=== PATIENT | female | born 1990 | race Caucasian/White ===

== ENCOUNTER 2019-05-25 00:21 | Emergency (ER) | payer MEDICAID, SELFPAY | END 2019-05-25 03:24 | disposition home or self-care (01) | PROVIDERS: Emergency Provider Physician Assistant; Family Provider Nurse Practitioner; Visit Provider Physician Assistant | DX: G89.29 Other chronic pain (principal); M54.5 Low back pain; F17.210 Nicotine dependence, cigarettes, uncomplicated | CPT/HCPCS: 96372; 99284; J1885 ==

== ENCOUNTER 2019-06-08 15:36 | Emergency (ER) | payer BC, MEDICAID, SELFPAY ==
[2019-06-08 15:41] VITALS: BP 123/68; PULSE 82; RESP 18; TEMP 36.6; O2SAT 100; BMI 30.4
--- NOTE | 2019-06-08 17:12 | PC.NURSE ---
Patient reports that she has had lower back pain for a long time but has got worse in the last 2 weeks. Patient states that pain is worse with movement. Patient reports that she was seen at urgent care today and they sent her here for an issue with her spine.
--- NOTE | 2019-06-08 17:23 | W.ED.BACK ---
HPI - Back Pain/Injury General: Chief Complaint: Back Pain/Injury Stated Complaint: Back pain Time Seen by Provider: 06/08/19 17:10 History of Present Illness: HPI Narrative: Patient complains of ongoing low back pain. Has a history of that for years. Has flared up the last couple weeks. Was sent here by the urgent care. MD elicited complaint: back pain Pertinent past history: prior back pain Onset (ago): year(s) Timing: intermittent and progressively worsening Associated symptoms: Deny abdominal pain, chills, fever(s), nausea or vomiting Review of Systems Const: Denies: fever, chills or body aches Eyes: Denies: change in vision or blurry vision ENMT: Denies: throat pain or nasal congestion Card: Denies: chest pain or shortness of breath on exertion Resp: Denies: shortness of breath, productive cough or non-productive cough GI: Denies: abdominal pain, nausea or vomiting Musc: Reports: back pain; Denies: extremity pain Skin/Breast: Denies: rash Neuro: Denies: headache Psych: Denies: anxiety or depression Bruce/Lymph: Denies: easy bruising PFSH ED PFSH: Statuses (acute, chronic, etc) shown below reflect problem list status as previously entered and may not be historically accurate Social History (Updated 06/08/19 @ 14:04 by Kassandra Coker LPN) Smoking and tobacco status: current every day smoker cigarettes Alcohol intake: current Alcohol intake frequency: holidays/special occasions only Physical Exam Const: COMMON NORMALS: no apparent distress, average body habitus and oriented x3 HENMT: COMMON NORMALS: normocephalic HEAD & SCALP: normal to inspection and normocephalic FACE & SINUS: normal facial exam Eye: COMMON NORMALS: conjunctivae normal GENERAL EYE: normal appearance of both eyes CONJUNCTIVA: Yes conjunctivae normal Neck/C-Spine: COMMON NORMALS: no JVD Chest: COMMONS NORMALS: inspection of chest normal Resp: COMMON NORMALS: normal respiratory effort and clear to auscultation bilaterally AUSCULTATION: clear to auscultation bilaterally Cardio: COMMON NORMALS: no JVD, regular rate and regular rhythm RATE: regular rate RHYTHM: regular rhythm GI: COMMON NORMALS: normal to inspection, nondistended, normoactive bowel sounds Extremity: COMMON NORMALS: normal to inspection and full ROM Neuro: COMMON NORMALS: oriented x3 GAIT: Yes normal gait MOTOR EXAM: strength 5/5 throughout OTHER: Straight leg lift positive at 15 degrees bilaterally for pain Course Vital Signs: Vital signs: Vital Signs Temperature 97.8 F 06/08/19 15:41 Pulse Rate 82 06/08/19 17:56 Respiratory Rate 15 06/08/19 17:56 Blood Pressure 113/62 06/08/19 17:56 Pulse Oximetry 98 06/08/19 17:56 Discharge Plan Discharge Patient Disposition: Home, Self-Care Clinical Impression: Lumbar radiculopathy Condition: Stable Prescriptions: New prednisone 20 mg tablet 20 mg PO DAILY Qty: 10 RF: 0 tramadol 50 mg tablet 50 mg PO Q8H PRN (Reason: pain) Qty: 10 RF: 0 Referrals: , [Primary Care Provider] - Eliot Banda FNP-C [Family Provider] - Discharge Diet: Usual diet Discharge Activity: Increase activity as tolerated Patient Instructions: Chronic Back Pain (ED) Activity Restrictions/Additional Instructions: Follow-up with medical provider as directed. Take medications as prescribed. Return to the ER are your medical provider if condition worsens. Read and understand discharge instructions. Follow-up with list of primary care doctor that you can contact for an appointment. Discharge Date/Time: 06/08/19 17:57 Coding Level of Care Code ED Spring Assembler Supervisor for [facility] Fwpauline Exam Problem Focused
[2019-06-08 17:56] VITALS: BP 113/62; PULSE 82; RESP 15; O2SAT 98
== END 2019-06-08 17:57 | disposition home or self-care (01) ==
PROVIDERS: Emergency Provider Nurse Practitioner Family; Family Provider Nurse Practitioner
DX: M54.16 Radiculopathy, lumbar region (principal); F17.210 Nicotine dependence, cigarettes, uncomplicated
CPT/HCPCS: 99281

== ENCOUNTER → 2019-07-29 12:56 | Outpatient (BNVA) | payer BC, MEDICAID, SELFPAY | PROVIDERS: Family Provider Nurse Practitioner; Visit Provider Nurse Practitioner | DX: R05 Cough (principal); J45.909 Unspecified asthma, uncomplicated | CPT/HCPCS: 87804 ==

== ENCOUNTER 2019-08-03 14:39 | Emergency (ER) | payer BC, MEDICAID, SELFPAY ==
[2019-08-03 14:50] VITALS: BP 132/72; PULSE 106; RESP 20; TEMP 37; O2SAT 98; BMI 29.0
--- NOTE | 2019-08-03 15:16 | XRR_ITS ---
PROCEDURE INFORMATION: Exam: XR Chest, 1 View Exam date and time: 08/03/2019 3:33 PM Age: 29 years old Clinical indication: Cough; Additional info: Cough/congestion TECHNIQUE: Imaging protocol: XR of the chest Views: 1 view. COMPARISON: CR Chest 2 views* [id number] 04/01/2019 1:05 PM FINDINGS: Lungs: Unremarkable. No consolidation. Pleural space: Unremarkable. No pleural effusion. No pneumothorax. Heart/Mediastinum: Unremarkable. No cardiomegaly. Bones/joints: No acute abnormality. XR/XR chest 1V portable [id number] IMPRESSION: No acute findings. No significant change.
--- NOTE | 2019-08-03 16:06 | ED_ITS ---
Entered by Noreen Kong, acting as scribe for Edd Murphy DO Aug 03, 2019 14:39 HPI - SOB/Dyspnea General: Chief Complaint: Shortness of Breath/Dyspnea Stated Complaint: SOB Time Seen by Provider: 08/03/19 16:06 Source: patient Mode of arrival: ambulatory Limitations: no limitations History of Present Illness: HPI Narrative: 29 yo female presents with shortness of breath. pt states this started 4 days ago. pt states she has had cough and congestion. pt has had a fever. pt has had nausea. pt denies any other symptoms at this time. Patient reports using her rescue inhaler with no improvement. She is not had any productive cough. No vomiting or diarrhea. MD elicited complaint: shortness of breath Onset (ago): day(s) (today) Context: recent illness (4 days ago) Timing: constant and progressively worsening Severity: moderate Relieving factors: nothing Associated symptoms: Reports cough, nausea and other (diarrhea); Deny chest congestion, chest pain or hemoptysis Treatment prior to arrival: none Related Data: Home oxygen amount: none Review of Systems ENMT: Denies: throat pain or ear pain Card: Denies: chest pain or edema Resp: Reports: shortness of breath, non-productive cough and wheezing; Denies: coughing up blood or chest congestion GI: Reports: nausea : Denies: flank pain, difficulty urinating, painful urination, urinary frequency or urinary urgency Skin/Breast: Denies: rash or itching PFSH ED PFSH: Social History Smoking and tobacco status: current every day smoker cigarettes Alcohol intake: current Alcohol intake frequency: holidays/special occasions only Physical Exam Const: COMMON NORMALS: no apparent distress GENERAL APPEARANCE: cooperative and comfortable ORIENTATION/CONSCIOUSNESS: Yes awake, Yes oriented to person, Yes oriented to place and Yes oriented to time HENMT: COMMON NORMALS: normocephalic, head/scalp atraumatic, hearing grossly normal bilaterally, external ears normal, EAC's normal, TM's normal bilaterally, nasal mucous membranes and turbinates normal, moist oral mucous membranes and oropharynx normal HEAD & SCALP: normocephalic and atraumatic NOSE: nasal mucous membranes and turbinates normal EXTERNAL EAR: Yes external ears normal EXTERNAL AUDITORY CANAL: EAC's normal TYMPANIC MEMBRANE: TM's normal bilaterally Eye: COMMON NORMALS: PERRL, EOMs intact bilaterally, conjunctivae normal and no scleral icterus CONJUNCTIVA: Yes conjunctivae normal PUPIL: Yes PERRL Neck/C-Spine: COMMON NORMALS: full ROM, no lymphadenopathy, supple and no JVD Lymph: LYMPHATIC: no lymphadenopathy noted and no lymphedema noted Resp: COMMON NORMALS: normal respiratory effort, no retractions, no use of accessory muscles and clear to auscultation bilaterally AUSCULTATION: clear to auscultation bilaterally Cardio: COMMON NORMALS: no JVD, regular rate, regular rhythm and no murmurs RATE: regular rate RHYTHM: regular rhythm GI: COMMON NORMALS: soft to palpation and no hepatosplenomegaly AUSCULTATION: Yes normoactive bowel sounds PALPATION: Yes soft, No tender, No guarding and Yes no hepatosplenomegaly Extremity: COMMON NORMALS: normal to inspection, normal capillary refill, no clubbing, cyanosis or edema, no calf tenderness and no pedal edema Neuro: SENSORIUM/ORIENTATION: Yes oriented to person, Yes oriented to place a nd Yes oriented to time Skin: COMMON NORMALS: no rashes or lesions noted GENERAL SKIN EXAM: no rashes or lesions noted Course ED course: Her exam is unremarkable at this point with her continue to use the rescue inhaler for prednisone taper as well recheck in the primary care office in 4 to 5 days. Vital Signs: Vital signs: Vital Signs Temperature 98.6 F 08/03/19 14:50 Pulse Rate 70 08/03/19 17:31 Respiratory Rate 16 08/03/19 17:31 Blood Pressure 129/80 08/03/19 17:31 Pulse Oximetry 99 08/03/19 17:31 MDM - SOB/Dyspnea Lab Data: Labs: Lab Results 08/03/19 08/03/19 08/03/19 Range/Units 16:16 16:21 16:21 WBC 5.2 (4.0-10.0) 10^3/ uL RBC 4.51 (4.1-5.3) 10^6/u L Hgb 12.2 (11.5-15.3) g/dL Hct 38.4 (37.0-47.0) % MCV 85.1 (81-99) fL MCH 27.1 L (28.0-34.0) pg MCHC 31.8 (30.0-36.0) g/dL RDW 13.7 (12.1-15.1) % Plt Count 245 (130-400) 10^3/c mm MPV 10.1 (7.4-10.4) fL Neut % (Auto) 59.2 % Lymph % (Auto) 29.2 % [place] % (Auto) 6.2 % Eos % (Auto) 4.4 % Baso % (Auto) 0.6 % Neut # (Auto) 3.1 (1.8-7.7) 10^3/u L Lymph # (Auto) 1.5 (0.8-4.8) 10^3/u L [place] # (Auto) 0.3 (0.2-0.9) 10^3/u L Eos # (Auto) 0.2 (0.0-0.8) 10^3/u L Baso # (Auto) 0.0 (0.0-0.1) 10^3/u L Nucleated RBC % (a uto) 0 % Nucleated RBCs # 0.0 /100WBC Sodium 139 (136-145) mmol/L Potassium 3.7 (3.5-5.1) mmol/L Chloride 100 (98-107) mmol/L Carbon Dioxide 27 (22-29) mmol/L Anion Gap 15.7 (5-19) BUN 14 (6-20) mg/dL Creatinine 0.7 (0.5-0.9) mg/dL GFR Calculation 99.6 (90-130) mL/min Glucose 88 (65-115) mg/dL Calculated Osmolal ity 284 L (285-295) mOsm/k g Calcium 10.2 (8.5-10.5) mg/dL Total Bilirubin 0.4 (0.15-1.2) mg/dL AST 32 (0-32) U/L ALT 38 H (0-33) U/L Alkaline Phosphata se 90 (35-105) IU/L Total Protein 7.8 (6.6-8.7) g/dL Albumin 4.5 (3.5-5.2) g/dL Globulin 3.3 (1.3-4.6) g/dL Influenza Type A A g Negative (Negative) POC Influenza B Ag Negative (Negative) Discharge Plan Discharge Patient Disposition: Home, Self-Care Clinical Impression: Asthma with exacerbation Condition: Stable Prescriptions: New Medrol (Rashid) 4 mg tablets,dose pack See Rx Instructions .ROUTE .COMPLEX Qty: 21 RF: 0 No Action albuterol sulfate [ProAir HFA] 90 mcg/actuation HFA aerosol inhaler See Rx Instructions INHALATION .COMPLEX PRN (Reason: shortness of breath or wheezing) Qty: 8.5 RF: 0 Discharge Orders: Discharge Order (Routine); Ordered 08/03/19 Ordered By: Edd Murphy Referrals: Eliot Banda, [facility]IED[facility] OPERATOR-C [Family Provider] - Discharge Diet: Usual diet Discharge Activity: Increase activity as tolerated Activity Restrictions/Additional Instructions: Follow-up with your primary care doctor if not improving. Return to the emergency room if worsens. Continue to use rescue inhalers as needed Stand Alone Forms: Work/School Release Discharge Date/Time: 08/03/19 17:32 Coding Level of Care Code ED Molder Wax Ball for [facility] Fwd Exam Comprehensive The documentation recorded by the Dilan carr Bridget Annette, accurately reflects the service I personally performed and the decisions made by Jeffrey rivers Curtis L, DO Aug 03, 2019 14:39
[2019-08-03 16:24] VITALS: O2SAT 98
[2019-08-03 16:29] LABS: Basophils % 0.6 %; Eosinophils # 0.2 10^3/uL (0.0-0.8); Eosinophils % 4.4 %; Hematocrit 38.4 % (37.0-47.0); Hemoglobin 12.2 g/dL (11.5-15.3); Lymphocytes # 1.5 10^3/uL (0.8-4.8); Lymphocytes % 29.2 %; Mean Corpuscular HGB Conc 31.8 g/dL (30.0-36.0); Mean Corpuscular Hemoglobin 27.1 pg (28.0-34.0); Mean Corpuscular Volume 85.1 fL (81-99); Mean Platelet Volume 10.1 fL (7.4-10.4); Monocytes # 0.3 10^3/uL (0.2-0.9); Monocytes % 6.2 %; Neutrophils # 3.1 10^3/uL (1.8-7.7); Neutrophils % 59.2 %; Nucleated Red Blood Cells % 0 %; Platelet Count 245 10^3/cmm (130-400); Red Blood Count 4.51 10^6/uL (4.1-5.3); Red Cell Distribution Width 13.7 % (12.1-15.1); White Blood Count 5.2 10^3/uL (4.0-10.0)
[2019-08-03 16:45] LABS: Alanine Aminotransferase 38 U/L (0-33); Albumin Level 4.5 g/dL (3.5-5.2); Alkaline Phosphatase 90 IU/L (35-105); Anion Gap 15.7 (5-19); Aspartate Amino Transferase 32 U/L (0-32); Blood Urea Nitrogen 14 mg/dL (6-20); Calcium 10.2 mg/dL (8.5-10.5); Carbon Dioxide 27 mmol/L (22-29); Chloride 100 mmol/L (98-107); Globulin 3.3 g/dL (1.3-4.6); Glomerular Filtration Rate 99.6 mL/min (90-130); Glucose 88 mg/dL (65-115); Osmolality Calculated 284 mOsm/kg (285-295); Potassium 3.7 mmol/L (3.5-5.1); Sodium 139 mmol/L (136-145); Total Bilirubin 0.4 mg/dL (0.15-1.2); Total Protein 7.8 g/dL (6.6-8.7)
[2019-08-03 16:53] LABS: Influenza A by IFA Negative (Negative); Influenza B by IFA Negative (Negative)
[2019-08-03 17:31] VITALS: BP 129/80; PULSE 70; RESP 16; O2SAT 99
== END 2019-08-03 17:32 | disposition home or self-care (01) ==
PROVIDERS: Physician Assistant; Emergency Provider Family Medicine; Family Provider Nurse Practitioner
DX: J45.901 Unspecified asthma with (acute) exacerbation (principal); F17.210 Nicotine dependence, cigarettes, uncomplicated
CPT/HCPCS: 12345; 36415; 71045; 80053; 85025; 87804; 99282; 99283

== ENCOUNTER 2020-09-14 11:36 | Outpatient (CLI) | payer MEDICAID, OTHER, SELFPAY ==
--- NOTE | 2020-09-14 11:52 | XR_ITS ---
WS: [id number] Chest 2 views, 09/14/2020 Clinical Data: CHRONIC COUGH Comparison: Portable chest, 08/03/2019. Findings: No nodules, masses or effusions are seen. The heart is normal. The pulmonary vascularity is not increased. No pneumonia or pneumothorax is seen. XR/XR chest 2V* [id number] Impression: Negative chest.
--- NOTE | 2020-09-14 11:52 | XR_ITS ---
WS: [id number] Lumbar spine, AP, lateral L5-S1 spot, and both obliques, lateral with flexion, extension and neutral position, 09/14/2020 Clinical Data: CHRONIC LOW BACK PAIN Comparison: Lumbar spine, 12/09/2009. Findings: No compression fractures or subluxation is seen. No disc space narrowing is seen. The transverse proc esses and SI joints are normal. The oblique films show bilateral pars interarticularis defects at L5-S1. On flexion and extension the re is no limitation of motion or subluxation. XR/XR lumbar spine 6V w f/e [id number] Impression: 1. Bilateral pars interarticularis defects at L5-S1. 2. Negative for limitation of motion or subluxation on flexion or extension.
== END 2020-09-14 11:37 | disposition home or self-care (01) ==
LOC: RAD 11:46
PROVIDERS: Visit Provider Family Medicine
DX: M54.5 Low back pain (principal)
CPT/HCPCS: 71046; 72114

== ENCOUNTER 2020-09-29 10:27 | Outpatient (RCR) | payer MEDICAID, SELFPAY | END 2020-10-24 23:59 | disposition home or self-care (01) | LOC: SPT 10:27 | PROVIDERS: PCP Family Medicine; Referring Provider Family Medicine; Visit Provider Family Medicine | DX: M43.06 Spondylolysis, lumbar region (principal); M54.5 Low back pain | CPT/HCPCS: 87635; 97110; 97161 ==

== ENCOUNTER 2020-10-05 11:08 | Outpatient (CLI) | payer MEDICAID, SELFPAY ==
--- NOTE | 2020-10-05 14:43 | PFTS_ITS ---
Date of Study:10/05/20 Date of Dictation: 10/07/2020 MECHANICS: Post bronchodilator forced vital capacity (FVC) is normal Post bronchodilator forced expiratory volume in one second (FEV1) is normal. FEV1/FVC is normal. There is no significant response to bronchodilator, noted significant response during mid flows suggesting small airway obstruction FLOW VOLUME LOOP: Flattening of inspiratory limb suggestive of variable extrathoracic obstruction. . LUNG VOLUMES: Not measured DIFFUSING CAPACITY FOR CARBON MONOXIDE: Not measured . INTERPRETATION: The spirometry is normal. There is bronchodilator response noted during mid flow suggesting possible small airway obstruction. Flow volume loop showed Flattening of inspiratory limb suggestive of variable extrathoracic obstruction. Correlate clinically if suspicion is high. MTDD
== END 2020-10-05 11:09 | disposition home or self-care (01) ==
LOC: RT 11:10
PROVIDERS: PCP Family Medicine; Visit Provider Family Medicine
DX: R05 Cough (principal); J45.909 Unspecified asthma, uncomplicated
CPT/HCPCS: 94060

== ENCOUNTER 2020-10-25 06:00 | Outpatient (RCR) | payer MEDICAID, SELFPAY | END 2020-11-23 23:59 | disposition home or self-care (01) | LOC: SPT 06:00 | PROVIDERS: PCP Family Medicine; Referring Provider Family Medicine; Visit Provider Family Medicine | DX: M43.06 Spondylolysis, lumbar region (principal); M54.5 Low back pain; G89.29 Other chronic pain | CPT/HCPCS: 97110 ==

== ENCOUNTER → 2021-06-01 11:20 | Outpatient (BNVA) | payer MEDICAID, SELFPAY | PROVIDERS: PCP Family Medicine; Visit Provider Family Medicine | DX: R53.83 Other fatigue (principal) | CPT/HCPCS: 84443 ==

== ENCOUNTER → 2021-07-04 10:56 | Outpatient (BNVA) | payer MEDICAID, SELFPAY | PROVIDERS: PCP Family Medicine; Referring Provider Family Medicine; Visit Provider Orthopaedic Surgery | DX: M25.561 Pain in right knee (principal); G89.29 Other chronic pain | CPT/HCPCS: 73560; 73565 ==

== ENCOUNTER 2021-07-27 14:09 | Outpatient (CLI) | payer MEDICAID, SELFPAY ==
--- NOTE | 2021-07-27 14:30 | CT_ITS ---
WS: [id number] CT RIGHT KNEE, NONCONTRAST. HISTORY: M25.561 - Pain in right knee Technique: All CT scans at [facility] use at least one of these dose optimization techniques: automated exposure control; mA and/or kV adjustment per patient size (includes targeted exams where dose is matched to clinical indication); or iterative reconstruction. DLP: 387.34 mGy-cm. COMPARISON: Radiograph 07/04/2021 No acute fractures. Lateral subluxation of the patella with respect to the intercondylar notch. Mild flattening of the posterior surface of the patella. Depth of the trochlear groove is 4.4 mm which is less than normal. Normal trochlear groove approximately 5.2 mm. Very small amount of fluid adjacent to the patella along the lateral femoral condyle. There is no sup erior elevation or migration of the patella. CT/CT knee RT wo con* [id number] IMPRESSION: Lateral subluxation of the patella. Shallow trochlear groove. No fractures.
== END 2021-07-27 14:10 | disposition home or self-care (01) ==
LOC: RAD 14:10
PROVIDERS: PCP Family Medicine; Visit Provider Orthopaedic Surgery
DX: S83.011A Lateral subluxation of right patella, initial encounter (principal); X58.XXXA Exposure to other specified factors, initial encounter
CPT/HCPCS: 73700

== ENCOUNTER → 2021-08-04 00:01 | Outpatient (BNVA) | payer MEDICAID, SELFPAY | PROVIDERS: PCP Family Medicine; Visit Provider Orthopaedic Surgery | DX: Z01.812 Encounter for preprocedural laboratory examination (principal); Z20.822 Contact with and (suspected) exposure to COVID-19 | CPT/HCPCS: 87635 ==

== ENCOUNTER 2021-08-10 06:46 | Day surgery (SDC) | payer MEDICAID, SELFPAY ==
[2021-08-09 14:32] VITALS: BMI 35.4
[2021-08-10] VITALS (11 sets, daily range): BP systolic 114–128; BP diastolic 61–88; PULSE 81–111; RESP 16–18; TEMP 36.1–36.7; O2SAT 97–100
--- NOTE | 2021-08-10 | SCC_ITS ---
Procedure done: Diagnostic arthroscopy right knee, tibial tubercle transfer, medial patellofemoral ligament reconstruction 42.2 seconds of fluoroscopic guidance, for a cumulative dose of 2.35 mGy, was provided to Dr. Bautista by the radiology department. C-arm images of the RIGHT knee were saved for the patient's permanent record. MAXIMILIAN
[2021-08-10 07:01] LABS: OR HCG Qualitative Urine Negative (Negative)
[2021-08-10] MEDS: sodium chloride 0.9% 1,000 ML 30 ML IV (07:05)
[2021-08-10] MEDS: acetaminophen 500 mg Tablet 1000 MG PO (07:20)
[2021-08-10] MEDS: oxyCODONE 20 mg ER (12 HR) Tablet PO (07:21)
[2021-08-10] MEDS: CELEcoxib 200 mg Capsule 400 MG PO (07:21)
--- NOTE | 2021-08-10 07:41 | ANES.PREANE2 ---
Pre-Anesthetic Assessment Height/Weight: Height 1.75 m Weight 108.862 kg Temp Pulse Resp BP Pulse Ox 98.1 F 81 16 114/74 99 08/10/21 07:03 08/10/21 07:03 08/10/21 07:21 08/10/21 07:03 08/10/21 07:21 Preop Diagnosis: Patellofemoral instability right knee Operation Date: 08/10/21 07:55 Proposed Procedures p right tibial osteotomy 57858/m25.361(Right) - Parish Bautista MD s Knee Arthroscopy(Right) - Parish Bautista MD s Patellofemoral Ligament Reconstruction(Right) - Parish Bautista MD Familial anesthetic complications: None Was Beta Cielo taken within 24 hours: N/A Was Clonidine taken within 24 hours: N/A Last intake: Intake Last Liquid Date 08/09/21 Last Liquid Time 23:00 Last Solid Date 08/09/21 Last Solid Time 20:00 Social Tobacco and No alcohol Exam alert, oriented x 3 and regular rate & rhythm B/L breath sounds diminished Airway Submandibular: within normal limits Cervical ROM: within normal limits Mallampati: Class III Dentition: partials Pulmonary Asthma CV/HEM None reported METS = 4 None reported Hepatic None reported GI None reported Metabolic None reported Musc/skel Patellar instability Neuropsych None reported Anesthetic Plan ASA status: 2 Anesthesia: Anesthesia Evaluation and General Other: We discussed risk and benefits of general anesthesia including PONV, sore throat (sometimes severe), corneal abrasion, positioning and peripheral nerve injuries, life threatening allergic reaction, post operative ICU admission requiring prolonged intubation, stroke, heart attack, , and rare incidences of recall. Patient consents to proceed with general anesthesia. Risk of > 500 ml blood loss (7ml/kg in children): No Medications/Allergies Home Medications Medication Instructions Recorded Confirmed Last Taken Type meloxicam 15 mg tablet (Mobic) 15 mg PO DAILY #30 tab 06/01/21 08/10/21 07/20/21 Rx Allergies Allergy/AdvReac Type Severity Reaction Status Date / Time No Known Allergies Allergy Verified 08/10/21 06:58 Current Medications Generic Name Dose Route Start Last Admin Trade Name Freq PRN Reason Stop Dose Admin Sodium Chloride 1,000 mls @ 30 mls/hr 08/10/21 07:00 08/10/21 07:05 Sodium Chloride 0.9% IV 08/11/21 06:59 30 mls/hr .Q24H JAROCHO Administration PFSH Anesthesia Medical History Asthma Social History Smoking and tobacco status: current every day smoker (currently vaping daily, former usage of cigarettes) cigarettes and e-cigarettes E-Cigarette Details: with nicotine E-cig/vape details: 6mg vape Quit status (tobacco): has quit using tobacco Year quit tobacco: 2019 Former quit date comment: Hx of 1 PPD x 10 Years Smoking risk assessment/counseling performed?: Yes Alcohol intake: never Counseling given: No Counseling given: No Lives independently: Yes Household members: children Marital status: Single Current occupational status: employed Current occupational exposures/hazards: No History of recent travel: No Current gender identity: Female Female Reproductive History Date of last menstrual period: 07/28/21 Data Anesthesia Cardiac Studies: No Data to Display
--- NOTE | 2021-08-10 08:09 | W.PM.OPSUD ---
Surgery/Procedure H&P Update DATE OF PROCEDURE: August 10, 2021 DATE H&P PERFORMED: 08/01/21 H&P UPDATE INFORMATION: I have reviewed H&P completed within last 30 days PREOP DIAGNOSIS: Patellofemoral instability right knee PLANNED PROCEDURE: Operation Date: 08/10/21 07:55 Proposed Procedures p right tibial osteotomy [id number]/m25.361(Right) - Parish Bautista MD s Knee Arthroscopy(Right) - Parish Bautista MD s Patellofemoral Ligament Reconstruction(Right) - Parish Bautista MD
--- NOTE | 2021-08-10 10:44 | XR_ITS ---
WS: [id number] XR knee RT 1-2V [id number] REASON FOR EXAM: OR PICS FINDINGS: 3 screws placed anterior to posterior in the proximal tibia. Small osteotomy below the distal most sc rew. Surgical appliances appear in proper position and alignment. XR/XR knee RT 1-2V [id number] IMPRESSION: Anterior tibial screw placements as above.
--- NOTE | 2021-08-10 11:08 | P.OP_ITS ---
Operative Report Date of procedure: August 10, 2021 Pre-op diagnosis: Preop Diagnosis Patellofemoral instability right knee Post-op diagnosis: same Procedure done: Diagnostic arthroscopy right knee, tibial tubercle transfer, medial patellofemoral ligament reconstruction Implants: Fleischmanns ASNIS 4.0 millimeter screws x3, Go and NephDialedIN Biosure PK screw 8x20mm Pathology: none sent Surgeon: Parish Bautista Anesthesia: General Estimated blood loss (mL): 5 Tourniquet time (min): 92 Findings: The patient had fibrillation and fraying of the medial facet of her patella but no point was exposed subchondral bone. Condition: stable Brief History: Brittni has a history of recurrent dislocations and pain in her right knee. Preoperative CT scans revealed a elevated tibial tubercle sulcus measurement of 22 mm. Clinical exam revealed excessive laxity of her medial patellofemoral ligament and the easily dislocatable patella. He was scheduled for a tibial tubercle osteotomy to correct bony deformities associated with patellar tracking and medial patellofemoral ligament reconstruction Procedure: The patient was taken to the operating room and given 2 g of Ancef. She is prepped and draped in the cyst supine position with the right knee exposed. A timeout was performed. The knee was initially entered through a standard inferior medial and inferior lateral portal. The diagnostic portion of arthroscopy was performed. Chondromalacia was identified over the medial facet of the patella but no exposed subchondral bone was identified. The remainder of the arthroscopy was unremarkable. Tourniquet was then inflated to 300 mmHg. An incision was made initially from the medial aspect the patella down the anterior medial knee to a point approximately 6 cm distal to the tibial tubercle. Dissection was carried down full-thickness to the medial tibia. The sartorius fascia was divided and split with scissors. A well developed semitendinosis tendon was identified and freed distally from its insertion on the tibia. A closed end tendon stripper unit was used to harvest the semitendinosis tendon. It was cleared of muscle from its proximal and and each end was fixed with a Ultrabraid suture. Attention was then focused on the tibial tubercle osteotomy. Preoperative measurements estimated a tibial tubercle tibial groove measurement of 22 mm. Our desire was to bring this back between 10 and 12 mm. Periosteum was elevated along the lateral border of the tibial tubercle and proximal tibial shaft exposing the anterior lateral tibial cortex. A similar dissection was accom plished medially. Utilizing an oscillating saw an osteotomy was made by passing the soft medial to lateral beginning just proximal to the tibial tubercle along a length of approximately 6 cm of tibia. Multiple drill holes were made anterior to posterior through the anterior cortex at the distal extent to eliminate the risk of propagation of the fracture. Axial cut was made just proximal to the tibial tubercle to allow the osteotomy to be freely mobile. The osteotomy was completed with osteotomes. At that point the osteotomy fragment could be rotated with the proximal extent of the also may be displaced laterally approximately 12 mm. 3 anterior to posterior as the screws with washers were placed to place securing the graft. Additional stability was of obtained from the proximal shelf created with the axial cut. Intraoperative imaging showed satisfactory alignment of the osteotomy. The incision was then extended proximally and slightly posteriorly. Dissection was carried down to the medial retinaculum. Electrocautery was used to bring this down to the mid patella at approximately the midpoint anterior to posterior. A guidepin was driven from the midpoint laterally and proximally exiting the superior lateral patella. The eyelid this guidepin was used to shuttle 1 limb of the sutures from the semitendinosis graft and the graft was shuttled through this tunnel. A hemostat was passed beneath the vastus medialis and vastus intermedius grasping the past sutures and then they were then brought beneath these muscles exiting anterior to the medial retinaculum. Utilizing fluoroscopy Schottle's point was localized in a guidepin driven from that point proximally and anteriorly exiting the lateral femur. Over this pin was passed the 8 mm reamer to a depth of approximately 50 mm. The tunnel was completed with the Endobutton reamer. Sutures from both end of the shuttled semitendinosis graft were then passed through this tunnel and tension was applied until the patella was felt to be reduced into the trochlea, still allowing approximately 25% of manual displacement in extension. A guidepin was placed and the final interference screw placed securing the tendons at proximal appropriate tension. Intraoperative images were obtained showing satisfactory position of the tunnels and hardware. The tourniquet was deflated. Deep tissues were closed with 0 Vicryl. Subcutaneous tissues were closed with a running 2-0 Stratafix. Skin was closed with a running 4-0 Stratafix. The lateral arthroscopy portal was closed with a single 3-0 Prolene. Prineo skin glue was applied along the incision. Sterile dressings, compressive web roll, and Karlos wrap, and knee immobilizer were placed. The patient was extubated and taken to recovery in stable condition.
[2021-08-10] MEDS: fentaNYL 50 mcg/mL INJ 2mL IVP (11:10)
--- NOTE | 2021-08-10 11:30 | ANES.PROC ---
Anesthesia Procedures Procedure/Date: 08/10/21 Nerve Block ^: Nerve Block 1: Main Anesthesia: general anesthesia Time Out Performed: Yes Consent: requested by attending/covering physician and from patient Nerve block location: adductor canal (R) Anesthesia monitors applied: pulse oximetry, EKG, BP cuff and oxygen Nerve block position: supine Anesthetic Used: ropivicaine 0.5% Amount of anesthesia used (mL): 30 Ultrasound used to: recognize landmarks and visualize and ID femerol nerve Nerve Stimulator Used?: No Interscalene/Femoral BLK: 4 stimuplex 21 g needle used for position and inplane approach Injection: neg aspiration of heme Patient Tolerated Procedure: well Complications: none
[2021-08-10] MEDS: oxyCODONE-APAP 5-325 mg Tablet 1 TAB PO (11:46)
--- NOTE | 2021-08-10 12:26 | ANE.PACU2 ---
Inpatient post-anesthesia follow up: Airway intact: Yes Vital signs: Temperature 98.1 F Pulse Rate 100 Respiratory Rate 17 Blood Pressure 120/88 Pulse Oximetry 99 Oxygen Delivery Me thod Room Air Oxygen Flow Rate Fraction of Inspir ed Oxygen Hydration adequate: Yes Nausea and vomiting: No Pain level: 5 Pain level: Pain improved with medication and PNB Mental status: Baseline
== END 2021-08-10 12:50 | disposition home or self-care (01) ==
PROVIDERS: Anesthesiology; PCP Family Medicine; Visit Provider Orthopaedic Surgery
PROC: (CPT 27418; principal; 2021-08-10 07:55)
PROC: (CPT 29870; 2021-08-10 07:55)
PROC: (CPT 27427; 2021-08-10 07:55)
DX: M25.361 Other instability, right knee (principal); J45.909 Unspecified asthma, uncomplicated; F17.290 Nicotine dependence, other tobacco product, uncomplicated
CPT/HCPCS: 27418; 27427; 73560; 76000; 81025; 84703; C1713; J0690; J1100; J1200; J1580; J2250; J2405; J2704; J2710; J2795; J3010; J3490; J7030

== ENCOUNTER → 2021-09-18 11:09 | Outpatient (BNVA) | payer MEDICAID, SELFPAY | PROVIDERS: PCP Family Medicine; Visit Provider Internal Medicine Critical Care Medicine | DX: J45.909 Unspecified asthma, uncomplicated (principal); F17.200 Nicotine dependence, unspecified, uncomplicated; R05.8 Other specified cough | CPT/HCPCS: 36415; 82785; 85025; 86003; 99214 ==

== ENCOUNTER → 2021-09-20 10:31 | Outpatient (BNVA) | payer MEDICAID, SELFPAY | PROVIDERS: PCP Family Medicine; Visit Provider Orthopaedic Surgery | DX: M25.361 Other instability, right knee (principal); F17.210 Nicotine dependence, cigarettes, uncomplicated; Z98.890 Other specified postprocedural states | CPT/HCPCS: 73562 ==

== ENCOUNTER 2021-10-03 06:54 | Outpatient (CLI) | payer MEDICAID, SELFPAY ==
--- NOTE | 2021-10-03 07:00 | USCV_ITS ---
Brittni Goodman Age: 31 Gender: F : 1990 Exam Date: 10/03/2021 07:21 Ordering Phys: Marcus Suárez DO Technologist: Joel Prince [place] [facility] [place] Indication: LE SWELLING. CONCERN FOR DVT PROCEDURES: Venous duplex imaging was performed in only the right lower extremity. The following venous structures were evaluated: common femoral vein, profunda vein, proximal portion of the greater saphenous vein, superficial femoral vein, and the popliteal vein. In addition, the posterior tibial and peroneal trunk were evaluated. Serial compression, augmentation maneuvers, and spectral Doppler flow evaluation were performed. FINDINGS: Normal 2-D Doppler and augmentation and compressibility throughout the lower extremity venous structures. Additional imaging through the proximal calf veins also reveals no thrombus. Limited evaluation of the greater saphenous vein is patent with no thrombus.. CONCLUSIONS No evidence of right lower extremity DVT. Juan R Hilliard MD (Electronically Signed) Final Date: 03 Oct 2021 09:35 S
== END 2021-10-03 06:55 | disposition home or self-care (01) ==
LOC: RAD 06:57
PROVIDERS: PCP Family Medicine; Visit Provider Family Medicine
DX: M79.89 Other specified soft tissue disorders (principal); M79.604 Pain in right leg
CPT/HCPCS: 93971

== ENCOUNTER → 2021-12-05 15:44 | Outpatient (BNVA) | payer MEDICAID, SELFPAY | PROVIDERS: PCP Family Medicine; Visit Provider Orthopaedic Surgery | DX: Z98.890 Other specified postprocedural states (principal) | CPT/HCPCS: 99024 ==

== ENCOUNTER 2021-12-27 14:30 | Outpatient (CLI) | payer MEDICAID, SELFPAY ==
--- NOTE | 2021-12-27 14:41 | XR_ITS ---
WS: [id number] Chest 2 views, 12/27/2021 Clinical Data: DYSPHAGIA Comparison: PA and lateral chest, 09/14/2020. Findings: No nodules, masses or effusions are seen. The heart is normal. The pulmonary vascularity is not increased. No pneumonia or pneumothorax is seen. XR/XR chest 2V* [id number] Impression: Negative chest.
== END 2021-12-27 14:31 | disposition home or self-care (01) ==
PROVIDERS: PCP Family Medicine; Visit Provider Specialist
DX: R13.10 Dysphagia, unspecified (principal)
CPT/HCPCS: 71046

== ENCOUNTER 2022-01-30 07:59 | Outpatient (CLI) | payer MEDICAID, SELFPAY ==
--- NOTE | 2022-01-30 08:11 | FL_ITS ---
WS: [id number] ESOPHAGRAM WITH FLUOROSCOPY HISTORY: DYSPHAGIA COMPARISON: None available. FLUOROSCOPY TIME: 0min [id number] # of spot films: 9 Esophagus and swallowing function: Patient swallowed the barium mixture without difficulty. No strict ures or mucosal abnormalities are identified. Gastroesophageal reflux: None. Hiatal hernia: No hiatal hernia. FL/FL barium swallow [id number] IMPRESSION: 1. Normal esophagram. 2. No gastroesophageal reflux.
--- NOTE | 2022-01-30 08:46 | PFTS_ITS ---
Date of Study:01/30/22 Date of Dictation: MECHANICS: Forced vital capacity (FVC) is . Forced expiratory volume in one second (FEV1) is . FEV1/FVC is . FLOW VOLUME LOOP: . LUNG VOLUMES: Total lung capacity (TLC) is . Residual volume (RV) is . DIFFUSING CAPACITY FOR CARBON MONOXIDE: . INTERPRETATION: The pulmonary function tests are . mechanics and lung volumes. Gas exchange (DLCO) is . MTDD
== END 2022-01-30 08:00 | disposition home or self-care (01) ==
LOC: RT 08:00
PROVIDERS: PCP Family Medicine; Visit Provider Specialist
DX: R13.10 Dysphagia, unspecified (principal); F17.210 Nicotine dependence, cigarettes, uncomplicated
CPT/HCPCS: 74220; 94060; 94726; 94729; J7611

== ENCOUNTER → 2022-02-06 09:58 | Outpatient (BNVA) | payer MEDICAID, SELFPAY | PROVIDERS: PCP Family Medicine; Visit Provider Orthopaedic Surgery | DX: G89.29 Other chronic pain (principal); M25.531 Pain in right wrist | CPT/HCPCS: 73110 ==

== ENCOUNTER 2022-03-29 07:29 | Outpatient (CLI) | payer MEDICAID, SELFPAY ==
--- NOTE | 2022-03-29 07:30 | CT_ITS ---
WS: [id number] CT CHEST TECHNIQUE: Noncontrast CT of the chest with coronal and sagittal reformatted images. CLINICAL INFORMATION: r/o vaping-induced lung injury COMPARISON: None. DLP: 698.[address] scans at [facility] use at least one of these dose optimization techniques: automated e xposure control; mA and/or kV adjustment per patient size (includes targeted exams where dose is matc hed to clinical indication); or iterative reconstruction. FINDINGS: Both lungs are well aerated. No acute pulmonary infiltrates. No focal pneumonia or pleural fluid. Nor mal lung volumes. Minimal dependent atelectasis in the lower lobes posteriorly. No convincing evidenc e of vaping associated lung injury. Normal caliber thoracic aorta. No mediastinal or hilar lymphadenopathy. No axillary lymphadenopathy. Minimal thoracic spine. CT/CT chest wo con [id number] IMPRESSION: 1. No evidence of vaping associated lung injury. This can be followed up with high-resolution CT chest if continued concern. 2. Both lungs are well aerated. No acute pulmonary infiltrates. Minimal depend ent atelectasis in the lung bases. 3. No mediastinal or hilar lymphadenopathy. 4. No other suspicious findings.
== END 2022-03-29 07:30 | disposition home or self-care (01) ==
PROVIDERS: PCP Family Medicine; Visit Provider Internal Medicine Pulmonary Disease
DX: R06.09 Other forms of dyspnea (principal); R94.2 Abnormal results of pulmonary function studies; Z87.891 Personal history of nicotine dependence
CPT/HCPCS: 71250

== ENCOUNTER → 2022-05-09 10:23 | Outpatient (BNVA) | payer MEDICAID, SELFPAY | PROVIDERS: PCP Family Medicine; Visit Provider Nurse Practitioner Family | DX: S89.91XA Unspecified injury of right lower leg, initial encounter (principal); W50.0XXA Accidental hit or strike by another person, initial encounter; R20.2 Paresthesia of skin; R20.0 Anesthesia of skin; M25.561 Pain in right knee | CPT/HCPCS: 73560; 73565 ==

== ENCOUNTER 2022-05-11 08:00 | Outpatient (CLI) | payer MEDICAID, SELFPAY ==
--- NOTE | 2022-05-11 08:00 | MR_ITS ---
WS: [id number] RIGHT WRIST MRI ARTHROGRAM INDICATION: RIGHT wrist pain. Progressive and chronic. TECHNIQUE: MRI of the RIGHT wrist. Axial T1 and axial T2 coronal T1, coronal PD, coronal STIR, chacon l 3-D FSPGR. Intra-articular gadolinium was administered with multiplanar arthrogram images. FINDINGS: Moderate joint space narrowing radiocarpal joint. Scaphoid appears normal. Lunate appears n ormal. Normal anatomic alignment. No acute fractures. Mild soft tissue edema about the wrist. Normal scapholunate interval. Scapholunate ligaments appear intact. No edema in the scaphoid and lunate. No evidence of avascular necrosis in these areas. Edema within the triquetrum with subchondral cystic ch josep. Normal distal radial ulnar joint. Small amount of fluid about the triquetrum. Lunotriquetral ligament appears intact. No contrast extending into the DRUJ. Excoriation and thinning along the proximal aida face of the TFCC. Slight ulnar positive variance. Partial tear of the TFCC involving the distal artic ular surface medially. Small amount of tenosynovitis along the proximal extensor carpi ulnaris. Parti al tear of the extensor carpi ulnaris at the level of the styloid. Small lobulated ganglion cysts about the trapezium and trapezoid. Normal carpal tunnel. Normal extens or retinaculum. MR/MR wrist RT wo/w con [id number] IMPRESSION: 1. Scaphoid and lunate are normal in appearance. 2. Mild ulna positive variance with degenerative cystic changes involving the triquetrum. This can be seen with ulnar styloid impaction or prior impaction in jury. 3. Associated partial tear involving the extensor carpi ulnaris at the level o f the ulna styloid with increased T2 and T1 signal abnormality. 4. Partial tear and thinning of the TFCC at the level of the distal articular surface and styloid attachments. 5. No other acute findings.
--- NOTE | 2022-05-11 08:08 | IR_ITS ---
WS: [id number] Right wrist arthrogram, 05/11/2022 Clinical Data: M25.531 - Pain in right wrist Comparison: None. Fluoroscopy time: 0min [id number] # of spot films: 1 Findings: With the usual technique the dorsum of the right wrist was cleansed with iodine and then 2 mL of 1% l idocaine infiltrated the skin and subcutaneous tissue for local anesthesia. Then a 25-gauge needle wi th Omnipaque was used to inject a small volume of contrast to localize the needle tip. Then 1.5 mL of gadolinium mixed with saline was used to inject the radiocarpal joint. IR/[place] [id number] Impression: Satisfactory right wrist arthrogram for right wrist MRI.
[2022-05-11] MEDS: gadobenate dimeglumine 20 mL vial IV (09:26)
[2022-05-11] MEDS: iohexol 240 mg/mL 50 mL Btl INTRA-ARTI (09:27)
== END 2022-05-11 08:01 | disposition home or self-care (01) ==
LOC: RAD 08:01
PROVIDERS: PCP Family Medicine; Visit Provider Nurse Practitioner Family
DX: M25.531 Pain in right wrist (principal); G89.29 Other chronic pain
CPT/HCPCS: 25246; 73223; 77002; A9577; Q9966

== ENCOUNTER 2022-06-02 16:28 | Emergency (ER) | payer MEDICAID, SELFPAY ==
[2022-06-02 16:46] VITALS: BP 108/72; PULSE 84; RESP 19; TEMP 36.9; O2SAT 100; BMI 34.0
--- NOTE | 2022-06-02 17:08 | XRR_ITS ---
PROCEDURE INFORMATION: Exam: XR Lumbosacral Spine Exam date and time: 06/02/2022 5:26 PM Age: 32 years old Clinical indication: Patient HX: Low back pain radiating across right hip; Additional info: Pain with radiation TECHNIQUE: Imaging protocol: Radiologic exam of the lumbosacral spine. Views: 2 or 3 views. COMPARISON: CR XR lumbar spine 6V w f/e [id number] 09/14/2020 12:04 PM FINDINGS: Bones/joints: There is spina bifida occulta of the 1st sacral segment. There is an incidental limbus vertebral body of the anterior inferior endplate of L4. No acute fracture or subluxation. There is straightening of the normal lordosis that may indicate spasm. Stable moderate facet degenerative changes in the lower lumbar spine. Soft tissues: Unremarkable. XR/XR lumbar spine 2-3V* [id number] IMPRESSION: No acute fracture or subluxation. Unchanged exam.
--- NOTE | 2022-06-02 17:09 | ED_ITS ---
Documented by User: DANIELLE Olguin 06/02/22 18:38 HPI - Back Pain/Injury General: Chief Complaint: Back Pain/Injury Stated Complaint: back pain Time Seen by Provider: 06/02/22 17:01 History of Present Illness: Patient is a 32-year-old female who presents to the emergency department with complaints of lumbar back pain. 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 Patient reports she has some radiation of pain down the anterior aspect of the right lower extremity. Denies bladder or bowel dysfunction. Denies saddle paresthesias Denies numbness or tingling in lower extremities. Patient denies any previous injuries to back Denies any previous episodes of back pain like this Associated symptoms: Deny abdominal pain, chills, difficulty walking, dysuria, fatigue, fever(s), hematuria, nausea, urinary urgency or vomiting Review of Systems General: Reports: 10 or more systems reviewed and unremarkable except in HPI and below Const: Denies: fever(s), chills, change in appetite, change in weight, fatigue or malaise Eyes: Denies: change in vision, eye discomfort, eye discharge or eye redness ENMT: Denies: throat pain, enlarged tonsils, odynophagia, hoarseness, ear or mastoid pain, ear discharge, change in hearing, tinnitus, nasal discharge, nasal congestion, post nasal drip or sinus pain Card: Denies: chest pain, palpitations, irregular heart rhythm, edema, dyspnea on exertion, orthopnea or leg pain with exertion Resp: Denies: dyspnea, productive cough, non-productive cough, wheezing, stridor or chest congestion GI: Denies: abdominal pain, nausea, vomiting, dysphagia, diarrhea, constipation, bloating, GI cramping or hematochezia : Denies: flank pain, difficulty voiding, dysuria, urinary frequency, urinary urgency, urinary hesitancy, oliguria or hematuria Musc: Denies: neck pain, back pain, extremity pain, joint pain, joint swelling, joint redness, joint warmth or muscle weakness Skin/Breast: Denies: rash, pruritus, erythema, photosensitivity or new lesions Neuro: Denies: headache(s), numbness in extremities, weakness in extremities, sensory changes, lack of coordination, difficulty walking, frequent falls, dizziness, confusion, Slurred speech present, difficulty communicating thoughts, seizure-like activity or involuntary movements Endo: Denies: polyuria, polydipsia or tired all the time Bruce/Lymph: Denies: easy bruising or easy bleeding PFSH ED PFSH: Medical History Abnormal flow volume loop Asthma Chronic pain of right wrist Low back pain with bilateral sciatica Patellar instability of right knee Tendinitis of finger of left hand Surgical History H/O right knee surgery Social History Smoking and tobacco status: current every day smoker (vaping) cigarettes and e- cigarettes E-Cigarette Details: with nicotine E-cig/vape details: 6mg vape Quit status (tobacco): has quit using tobacco Year quit tobacco: 2019 Former quit date comment: Hx of 1 PPD x 10 Years Smoking risk assessment/counseling performed?: Yes Alcohol intake: never Counseling given: No Counseling given: No Lives independently: Yes Household members: children Marital status: Single Current occupational status: employed Current occupational exposures/hazards: No History of recent travel: No Current gender identity: Female Female Reproductive History: Date of last menstrual period: 07/28/21 Physical Exam Narrative: EXAM NARRATIVE: No acute distress Alert and oriented x3 Afebrile and vital signs stable Symmetrical face Extraocular movements intact PERRLA 4 mm No straining, lip ring present; tongue piercing present Nares patent Hearing grossly intact bilateral No acute distress Nonlabored breathing-no accessory muscle use, no stridor, no wheezing, no retractions Breath sounds clear to auscultation Heart tones normal without additional beats 2+ pulses upper and lower extremities Regular rate and rhythm Denies abdominal pain Abdomen is soft and nontender Denies dysuria, denies any urinary symptoms Cervical spine and anterior neck nontender to palpation Thoracic and chest wall nontender to palpation Lumbar spine-tenderness to palpation along the lumbar spine No obvious paraspinous muscle spasm but patient is tender over paraspinous muscles Pain radiates along the L3/L4 nerve distribution Breakaway strength with hip flexors and quads bilateral 5/5 strength gastroc in anterior tibialis Sensation grossly intact bilateral lower extremities Denies numbness or tingling Extremities are well-perfused Patient is not anxious; she is cooperative. Course Vital Signs: Vital signs: Vital Signs Temperature 98.5 F 06/02/22 16:46 Pulse Rate 80 06/02/22 18:41 Respiratory Rate 14 06/02/22 18:41 Blood Pressure 112/78 06/02/22 18:41 Pulse Oximetry 99 06/02/22 18:41 Oxygen Delivery Me thod 06/02/22 16:46 MDM - Back Pain/Injury Medical Decision Making Patient arrives in the emergency department with lumbar back pain that radiates down into the lower extremities, right greater than left. She denies any trauma or any falls. She reports weakness secondary to pain. Differential diagnosis includes: Muscle spasm, arthropathy, spondylolisthesis, degenerative joint disease, degenerative disc disease Patient has not had any previous imaging of L-spine. XR imaging has been obtained. Imaging reveals facet arthropathy and loss of normal lumbar lordosis but no significant loss of disc space height or foraminal narrowing. Patient will discharge home with Robaxin and prednisone. She is already taking meloxicam and gabapentin. Patient is to use ice and heat and starting in 2 days back exercises. Patient should follow-up with her primary care doctor for further concerns. She may return to the emergency department for new concerning or worsening symptoms Labs Radiology Impressions Lumbar Spine X-Ray 06/02/22 17:08 IMPRESSION: No acute fracture or subluxation. Unchanged exam. Discharge Plan Discharge Patient Disposition: Home Clinical Impression: Lumbar radiculopathy, Acute lumbar back pain, Muscle spasm, Arthropathy of facet joint Condition: Stable Prescriptions: New methocarbamol 500 mg tablet 500 mg PO Q6H Qty: 60 0RF prednisone 50 mg tablet 50 mg PO DAILY 5 Days Qty: 5 0RF No Action albuterol sulfate 90 mcg/actuation HFA aerosol inhaler 2 puff inhalation Q6H PRN (Reason: shortness of breath or wheezing) 30 Days Qty: 8.5 3RF meloxicam 7.5 mg tablet 7.5 mg PO BID Qty: 60 0RF gabapentin 100 mg capsule 100 mg PO BID Qty: 30 0RF Discharge Orders: Discharge ED (Routine); Ordered 06/02/22 Ordered By: Amy De Los Santos McTeer Referrals: Lashonda Hunt DO [Primary Care Provider] - Discharge Diet: Advance as tolerated Discharge Activity: Resume usual activity Patient Instructions: Acute Low Back Pain (ED), Lower Back Exercises (ED), Opioid Safety, Pain Management Activity Restrictions/Additional Instructions: Ice and heat for your back pain Robaxin is a muscle relaxer. You can take this up to 4 times a day. Do not drive will taking it. Continue taking your meloxicam. You can add in your gabapentin twice daily to help with pain in the lower extremities as well. I prescribed prednisone. You are going to take 1 tablet a day for the next 5 days, starting tomorrow Tylenol arthritis will also help When she did begin the back exercises in another couple days. A strong core and back is needed to prevent back pain like this. Engage in weight loss and exercise to lessen the risk of this returning in the future Please follow-up with your primary care doctor for further questions or concerns regarding your back pain. 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[employer] Medical Decision Making Straight Forward Documented by User: Edd Murphy DO 06/03/22 07:00 HPI - Back Pain/Injury General: Chief Complaint: Back Pain/Injury Stated Complaint: back pain Time Seen by Provider: 06/02/22 17:01 [facility] ED PFSH: Medical History Abnormal flow volume loop Asthma Chronic pain of right wrist Low back pain with bilateral sciatica Patellar instability of right knee Tendinitis of finger of left hand Surgical History H/O right knee surgery Social History Smoking and tobacco status: current every day smoker (vaping) cigarettes and e- cigarettes E-Cigarette Details: with nicotine E-cig/vape details: 6mg vape Quit status (tobacco): has quit using tobacco Year quit tobacco: 2019 Former quit date comment: Hx of 1 PPD x 10 Years Smoking risk assessment/counseling performed?: Yes Alcohol intake: never Counseling given: No Counseling given: No Lives independently: Yes Household members: children Marital status: Single Current occupational status: employed Current occupational exposures/hazards: No History of recent travel: No Current gender identity: Female Course Vital Signs: Vital signs: Vital Signs Temperature 98.5 F 06/02/22 16:46 Pulse Rate 80 06/02/22 18:41 Respiratory Rate 14 06/02/22 18:41 Blood Pressure 112/78 06/02/22 18:41 Pulse Oximetry 99 06/02/22 18:41 Oxygen Delivery Me thod 06/02/22 16:46 MDM - Back Pain/Injury Medical Decision Making Patient arrives in the emergency department with lumbar back pain that radiates down into the lower extremities, right greater than left. She denies any trauma or any falls. She reports weakness secondary to pain. Differential diagnosis includes: Muscle spasm, arthropathy, spondylolisthesis, degenerative joint disease, degenerative disc disease Patient has not had any previous imaging of L-spine. XR imaging has been obtained. Imaging reveals facet arthropathy and loss of normal lumbar lordosis but no significant loss of disc space height or foraminal narrowing. Patient will discharge home with Robaxin and prednisone. She is already taking meloxicam and gabapentin. Patient is to use ice and heat and starting in 2 days back exercises. Patient should follow-up with her primary care doctor for further concerns. She may return to the emergency department for new concerning or worsening symptoms Chart reviewed and patient discussed with midlevel. Agree with assessment and plan. Labs Radiology Impressions Lumbar Spine X-Ray 06/02/22 17:08 IMPRESSION: No acute fracture or subluxation. Unchanged exam. Discharge Plan Discharge Patient Disposition: Home Clinical Impression: Lumbar radiculopathy, Acute lumbar back pain, Muscle spasm, Arthropathy of facet joint Condition: Stable Prescriptions: New methocarbamol 500 mg tablet 500 mg PO Q6H Qty: 60 0RF prednisone 50 mg tablet 50 mg PO DAILY 5 Days Qty: 5 0RF No Action albuterol sulfate 90 mcg/actuation HFA aerosol inhaler 2 puff inhalation Q6H PRN (Reason: shortness of breath or wheezing) 30 Days Qty: 8.5 3RF meloxicam 7.5 mg tablet 7.5 mg PO BID Qty: 60 0RF gabapentin 100 mg capsule 100 mg PO BID Qty: 30 0RF Discharge Orders: Discharge ED (Routine); Ordered 06/02/22 Ordered By: Amy Donovan Referrals: Lashonda Hunt DO [Primary Care Provider] - Discharge Diet: Advance as tolerated Discharge Activity: Resume usual activity Patient Instructions: Acute Low Back Pain (ED), Lower Back Exercises (ED), Opioid Safety, Pain Management Activity Restrictions/Additional Instructions: Ice and heat for your back pain Robaxin is a muscle relaxer. You can take this up to 4 times a day. Do not drive will taking it. Continue taking your meloxicam. You can add in your gabapentin twice daily to help with pain in the lower extremities as well. I prescribed prednisone. You are going to take 1 tablet a day for the next 5 days, starting tomorrow Tylenol arthritis will also help When she did begin the back exercises in another couple days. A strong core and back is needed to prevent back pain like this. Engage in weight loss and exercise to lessen the risk of this returning in the future Please follow-up with your primary care doctor for further questions or concerns regarding your back pain. 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
[2022-06-02] MEDS: dexamethasone 10 mg/mL INJ IM (17:17)
[2022-06-02] MEDS: ketorolac 60 mg/2 mL INJ IM (17:17)
[2022-06-02] MEDS: orphenadrine 30 mg/mL Inj 2 mL 60 MG IM (17:17)
[2022-06-02 18:41] VITALS: BP 112/78; PULSE 80; RESP 14; O2SAT 99
== END 2022-06-02 18:48 | disposition home or self-care (01) ==
PROVIDERS: Emergency Provider Nurse Practitioner; PCP Family Medicine
DX: M47.816 Spondylosis without myelopathy or radiculopathy, lumbar region (principal); M62.830 Muscle spasm of back; F17.290 Nicotine dependence, other tobacco product, uncomplicated
CPT/HCPCS: 72100; 96372; 99284; J1100; J1885; J2360

== ENCOUNTER → 2022-07-05 15:02 | Outpatient (BNVA) | payer MEDICAID, SELFPAY | PROVIDERS: PCP Family Medicine; Visit Provider Orthopaedic Surgery | DX: M47.816 Spondylosis without myelopathy or radiculopathy, lumbar region (principal) | CPT/HCPCS: 72110 ==

== ENCOUNTER → 2022-07-11 13:31 | Outpatient (BNVA) | payer MEDICAID, SELFPAY | PROVIDERS: PCP Family Medicine; Visit Provider Orthopaedic Surgery | DX: M25.362 Other instability, left knee (principal); M23.42 Loose body in knee, left knee | CPT/HCPCS: 73560; 73565 ==

== ENCOUNTER 2022-07-25 12:20 | Outpatient (CLI) | payer MEDICAID, SELFPAY | END 2022-07-25 12:21 | disposition home or self-care (01) | LOC: SLEEP 07-26 12:20 | PROVIDERS: PCP Family Medicine; Visit Provider Otolaryngology | DX: G47.33 Obstructive sleep apnea (adult) (pediatric) (principal) | CPT/HCPCS: G0399 ==

== ENCOUNTER 2022-08-02 11:45 | Outpatient (CLI) | payer MEDICAID, SELFPAY ==
--- NOTE | 2022-08-02 11:45 | MR_ITS ---
WS: [id number] MRI LUMBAR SPINE NONCONTRAST HISTORY: Chronic pain in RIGHT hip. COMPARISON: Radiograph 07/05/2022 TECHNIQUE: Sagittal and axial multisequence imaging is submitted. Normal lumbar alignment with no compression fractures or marrow edema. Mild disc desiccation from L3-4 to L5-S1 without loss of height. Conus terminates normally at L1-2 disc level. L1-L2: Normal. L2-L3: Mild facet and ligamentum flavum hypertrophy. No stenosis. L3-L4: Mild diffuse annular disc bulge with a RIGHT paracentral small disc protrusion. Moderate ligam entum flavum and facet arthritis. Mild central, bilateral subarticular recess and foraminal stenosis. Slightly greater encroachment upon the RIGHT traversing L4 nerve root. L4-L5: Mild annular disc bulge with ligamentum flavum and facet arthritis. Central disc protrusion co ntacts but does not displace the traversing RIGHT L5 nerve root. Mild central, bilateral subarticular recess and mild to moderate foraminal stenosis. L5-S1: Osteophytic ridging and annular disc bulge. Small central disc protrusion with annular fissure . Disc protrusion extends greater to the RIGHT. Marked asymmetric ligamentum flavum hypertrophy, RIGH T greater than LEFT. There is probably a spina bifida occulta defect posteriorly. Moderate central an d bilateral subarticular recess and foraminal stenosis. Greater stenosis RIGHT foramen and subarticul ar recess. Paravertebral soft tissues are negative. MR/MR lumbar spine wo con* [id number] IMPRESSION: 1. Moderate central, bilateral subarticular recess and foraminal stenosis at L 5-S1. Additional small central to RIGHT paracentral disc protrusion with annula r fissure contributing to the subarticular recess encroachment. 2. Mild central, bilateral subarticular recess with mild to moderate foraminal stenosis at L4-5. Slightly greater encroachment upon the traversing RIGHT L5 n erve root. 3. Mild central, bilateral subarticular recess and foraminal stenosis at L3-4. Slightly greater disc encroachment upon the traversing RIGHT L4 nerve root.
== END 2022-08-02 11:46 | disposition home or self-care (01) ==
PROVIDERS: PCP Family Medicine; Visit Provider Orthopaedic Surgery
DX: M25.551 Pain in right hip (principal); G89.29 Other chronic pain; M48.061 Spinal stenosis, lumbar region without neurogenic claudication; M48.07 Spinal stenosis, lumbosacral region; M51.26 Other intervertebral disc displacement, lumbar region; M51.27 Other intervertebral disc displacement, lumbosacral region
CPT/HCPCS: 72148

== ENCOUNTER 2022-08-09 15:54 | Outpatient (CLI) | payer MEDICAID, SELFPAY | END 2022-08-09 15:55 | disposition home or self-care (01) | LOC: SPT 15:54 | PROVIDERS: PCP Family Medicine; Visit Provider Physician Assistant | DX: Z46.89 Encounter for fitting and adjustment of other specified devices (principal); M54.50 Low back pain, unspecified; G89.29 Other chronic pain | CPT/HCPCS: 97760; L0637 ==

== ENCOUNTER 2022-08-30 14:26 | Outpatient (RCR) | payer MEDICAID, SELFPAY | END 2022-09-23 23:59 | disposition home or self-care (01) | LOC: SPT 14:26 | PROVIDERS: PCP Family Medicine; Visit Provider Physician Assistant | DX: G89.29 Other chronic pain (principal); M54.50 Low back pain, unspecified | CPT/HCPCS: 97110; 97161 ==

== ENCOUNTER 2022-09-24 06:00 | Outpatient (RCR) | payer MEDICAID, SELFPAY | END 2022-10-24 23:59 | disposition home or self-care (01) | LOC: SPT 06:00 | PROVIDERS: PCP Family Medicine; Visit Provider Physician Assistant | DX: M54.50 Low back pain, unspecified (principal); G89.29 Other chronic pain | CPT/HCPCS: 97110; 97164 ==

== ENCOUNTER → 2022-10-11 11:04 | Outpatient (BNVA) | payer MEDICAID, SELFPAY | PROVIDERS: PCP Family Medicine; Visit Provider Family Medicine | DX: M51.36 Other intervertebral disc degeneration, lumbar region (principal); Z13.6 Encounter for screening for cardiovascular disorders | CPT/HCPCS: 80053; 80061; 84443; 85025 ==

== ENCOUNTER → 2022-10-12 08:15 | Outpatient (BNVA) | payer MEDICAID, SELFPAY | PROVIDERS: PCP Family Medicine; Visit Provider Family Medicine | DX: M51.36 Other intervertebral disc degeneration, lumbar region (principal); D64.9 Anemia, unspecified; Z13.6 Encounter for screening for cardiovascular disorders | CPT/HCPCS: 82728; 83550 ==

== ENCOUNTER 2022-10-18 20:00 | Outpatient (CLI) | payer MEDICAID, SELFPAY | END 2022-10-18 20:01 | disposition home or self-care (01) | LOC: SLEEP 10-19 04:56 | PROVIDERS: PCP Family Medicine; Visit Provider Otolaryngology | DX: G47.33 Obstructive sleep apnea (adult) (pediatric) (principal) | CPT/HCPCS: 95811 ==

== ENCOUNTER → 2023-02-18 15:30 | Outpatient (BNVA) | payer MEDICAID, SELFPAY | PROVIDERS: PCP Family Medicine; Visit Provider Obstetrics & Gynecology | DX: N92.6 Irregular menstruation, unspecified (principal) | CPT/HCPCS: 84702 ==

== ENCOUNTER → 2023-04-30 13:06 | Outpatient (BNVA) | payer MEDICAID, SELFPAY | PROVIDERS: PCP Family Medicine; Visit Provider Physician Assistant | DX: M25.562 Pain in left knee (principal); G89.29 Other chronic pain; M25.362 Other instability, left knee | CPT/HCPCS: 73560; 73565 ==

== ENCOUNTER → 2023-07-19 09:40 | Outpatient (BNVA) | payer MEDICAID, SELFPAY | PROVIDERS: PCP Family Medicine; Visit Provider Orthopaedic Surgery | DX: M54.9 Dorsalgia, unspecified (principal) | CPT/HCPCS: 36415; 80053; 81003; 85025 ==

== ENCOUNTER 2023-07-25 06:45 | Day surgery (SDC) | payer MEDICAID, SELFPAY ==
[2023-07-25] VITALS (13 sets, daily range): BP systolic 99–123; BP diastolic 61–82; PULSE 68–82; RESP 12–18; TEMP 36.1–36.3; O2SAT 95–100; BMI 34.0
[2023-07-25] MEDS: sodium chloride 0.9% 1,000 ML 30 ML IV (07:14)
--- NOTE | 2023-07-25 08:05 | W.PM.OPSUD ---
Surgery/Procedure H&P Update DATE OF PROCEDURE: July 25, 2023 DATE H&P PERFORMED: 07/19/23 H&P UPDATE INFORMATION: I have reviewed H&P completed within last 30 days, I have examined patient prior to procedure and No changes to prior documentation PREOP DIAGNOSIS: Lumbar stenosis with neurogenic claudication PLANNED PROCEDURE: Operation Date: 07/25/23 08:20 Proposed Procedures p Lumbar Spine Decompression Lumbar Decompression(Right) - Jacob Ayala DO
[2023-07-25 08:27] LABS: OR HCG Qualitative Urine Negative (Negative)
[2023-07-25] MEDS: ceFAZolin 2,000 MG in sodium chloride 0.9% (plus) 50 ML 100 MG IV (08:53)
[2023-07-25] MEDS: lidocaine-epi 1% 20 mL INJ INJECTION (09:39)
--- NOTE | 2023-07-25 10:54 | XR_ITS ---
WS: [id number] Exam: XR lumbar spine 1V [id number] Date/Time of Exam: 07/25/2023 10:54 AM Reason For Exam: OR pic, decompression 3 anterior posterior C-arm images of the lumbar spine are obtained. Images are obtained for preoperative localization purposes.
[2023-07-25] MEDS: HYDROmorphone 1 mg/mL INJ 1 mL 0.5 MG IVP (11:08)
--- NOTE | 2023-07-25 11:14 | P.OP_ITS ---
Operative Report Date of procedure: July 25, 2023 Pre-op diagnosis: Lumbar stenosis with neurogenic claudication Post-op diagnosis: same Procedure done: 1. L3-4 laminectomy with partial facetectomy 2. L4-5 laminectomy with partial facetectomy 3. L5-S1 laminectomy with partial facetectomy Surgeon: Jacob Ayala DO Estimated blood loss (mL): 50 Procedure: 1. L3-4 laminectomy with partial facetectomy 2. L4-5 laminectomy with partial facetectomy 3. L5-S1 laminectomy with partial facetectomy Patient is brought to the operative suite. After undergoing anesthesia they are placed in the prone position. All areas of impingement are well padded. Patient is then prepped and draped in the normal sterile fashion. A skin incision is made over the L3/4 level. This is confirmed under c-arm guidance. A series of dilators are passed and the tubular retractor is docked on the L3 lamina. A bovie is used to clear the soft tissue off the lamina and the L 3/4 facet joint. A high speed nancy is then used to perform the laminectomy and take down the medial aspect of the L 3/4 facet joint. A kerrison rongeure was then used to take down the remaining lamina and smooth the edge of the laminectomy up to the point where the ligamentum flavum attaches. Attention was then brought to the medial aspect of the facet joint. The remaining medial aspect of the superior and inferior aspect of the facet joint were taken down with the kerrison from the pedicle of L3 to L 4. The facet emmanuel int had significant hypertrophy. Attention was then brought to the Ligamentum Flavum. The ligament was taken down from the lamina of L3 to L4 and out medially to the remaining facet joint. The ligament was thick. The dura was then exposed. The dura was in good repair. The L3 nerve was then traced with a curette out the L3/4 foramen and found to be adequately decompressed. The L4 nerve was traced with a curette around the L4 pedicle. The lateral recess was opened with a kerrison helping to further decompress the L4 nerve. Wound is then irrigated copiously with saline and surgiflo is used to stop any bleeding. The tubular retractor is removed and the A skin incision is made over the L4/5 level. This is confirmed under c-arm guidance. A series of dilators are passed and the tubular retractor is docked on the L4 lamina. A bovie is used to clear the soft tissue off the lamina and the L 4/5 facet joint. A high speed nancy is then used to perform the laminectomy and take down the medial aspect of the L 4/5 facet joint. A kerrison rongeure was then used to take down the remaining lamina and smooth the edge of the laminectomy up to the point where the ligamentum flavum attaches. Attention was then brought to the medial aspect of the facet joint. The remaining medial aspect of the superior and inferior aspect of the facet joint were taken down with the kerrison from the pedicle of L4 to L 5. The facet joint had significant hypertrophy. Attention was then brought to the Ligamentum Flavum. The ligament was taken down from the lamina of L4 to L5 and out medially to the remaining facet joint. The ligament was thick. The dura was then exposed. The dura was in good repair. The L4 nerve was then traced with a curette out the L4/5 foramen and found to be adequately decompressed. The L5 nerve was traced with a curette around the L5 pedicle. The lateral recess was opened with a kerrison helping to further decompress the L5 nerve. Wound is then irrigated copiously with saline and surgiflo is used to stop any bleeding. The tubular retractor is removed and the A skin incision is made over the L5/S1 level. This is confirmed under c-arm guidance. A series of dilators are passed and the tubular retractor is docked on the L5 lamina. A bovie is used to clear the soft tissue off the lamina and the L 5/S1 facet joint. A high speed nancy is then used to perform the laminectomy and take down the medial aspect of the L 5/S1 facet joint. A kerrison rongeure was then used to take down the remaining lamina and smooth the edge of the laminectomy up to the point where the ligamentum flavum attaches. Attention was then brought to the medial aspect of the facet joint. The remaining medial aspect of the superior and inferior aspect of the facet joint were taken down with the kerrison from the pedicle of L5 to S1. The facet joint had significant hypertrophy. Attention was then brought to the Ligamentum Flavum. The ligament was taken down from the lamina of L5 to S1 and out medially to the remaining facet joint. The ligament was extremely thick. The dura was then exposed. The dura was in good repair. The L5 nerve was then traced with a curette out the L5/S1 foramen and found to be adequately decompressed. The S1 nerve was traced with a curette around the S1 pedicle. The lateral recess was opened with a kerrison helping to further decompress the S1 nerve. Wound is then irrigated copiously with saline and surgiflo is used to stop any bleeding. The tubular retractor is removed and the wound is closed with vicryl and monocryl suture. Glue is then used to protect the wound. A sterile dressing is then placed. Patient was then placed in the supine position and transferred to the PACU in stable condition.
[2023-07-25] MEDS: meperidine 50 mg/mL INJ 12.5 MG IVP (11:15)
[2023-07-25] MEDS: diphenhydrAMINE 50 mg/mL SDV 1mL 12.5 MG IVP (11:17)
[2023-07-25] MEDS: HYDROcodone-acetaminophen 5-325 mg Tablet 1 TAB PO (11:36)
--- NOTE | 2023-07-25 14:17 | ANE.PACU2 ---
Inpatient post-anesthesia follow up: Airway intact: Yes Vital signs: Temperature 97.4 F Pulse Rate 71 Respiratory Rate 18 Blood Pressure 113/78 Pulse Oximetry 96 Oxygen Delivery Me thod Room Air Oxygen Flow Rate 6 Fraction of Inspir ed Oxygen Hydration adequate: Yes Nausea and vomiting: No Pain level: 3 Mental status: Baseline
== END 2023-07-25 12:10 | disposition home or self-care (01) ==
PROVIDERS: Anesthesiology; PCP Family Medicine; Visit Provider Orthopaedic Surgery
PROC: (CPT 63005; principal; 2023-07-25 08:10)
DX: M48.062 Spinal stenosis, lumbar region with neurogenic claudication (principal)
CPT/HCPCS: 63047; 63048 ×2; 72020; 76000; 81025; 84703; J0690; J1100; J1170; J1200; J2175; J2405; J2704; J2710; J3010; J3490; J7030

== ENCOUNTER 2023-08-07 09:18 | Outpatient (CLI) | payer MEDICAID, SELFPAY ==
--- NOTE | 2023-08-07 09:30 | MR_ITS ---
WS: [id number] MRI LEFT KNEE NONCONTRAST TECHNIQUE: Axial PD, coronal PD fat sat, coronal PD, sagittal PD, and sagittal PD fat-sat images obta ined. CLINICAL INFORMATION: knee pain COMPARISON: None. FINDINGS: Distal quadriceps and patella tendons are intact. Mild to moderate chondromalacia patella. Lateral sherwood bluxation of the patella from the trochlear groove suspicious for patellar instability. Shallow appea ring trochlear groove. Medial and lateral patellar retinaculum appear intact. Small joint effusion. H igh riding subluxed patella. ACL and PCL appear intact. Medial and lateral meniscus appear intact. Well-corticated suspected osteo chondral avulsion fracture in the anterior lateral joint compartment corresponding to the density see n on the recent radiograph. Small ovoid fragment measures 8 x 3.5 mm. Surrounding fluid seen on the a xial imaging. No acute appearing meniscal tears. Medial and lateral collateral ligaments are intact. Normal popliteus. Grade II chondromalacia lateral joint compartment advanced for patient this age. Tiny popliteal cyst. IMPRESSION: 1. High riding and lateral subluxed patella with shallow trochlear groove. Findings suspicious for p atellar instability. 2. Medial and lateral patellar retinaculum appear intact. 3. Grade II chondromalacia patella. 4. Well-corticated osteochondral fragment in the anterior lateral joint compartment corresponds to t he density seen on the recent radiograph. Circumferential surrounding fluid. No significant edema in the tibia. 5. Grade II chondromalacia lateral joint compartment. 6. No other acute findings. Outbridge grading: grade II: blister-like swelling/fraying of articular cartilage extending to surfac e
== END 2023-08-07 09:19 | disposition home or self-care (01) ==
LOC: RAD 09:18
PROVIDERS: PCP Family Medicine; Visit Provider Physician Assistant
DX: M25.362 Other instability, left knee (principal); M22.42 Chondromalacia patellae, left knee; S83.012A Lateral subluxation of left patella, initial encounter; X58.XXXA Exposure to other specified factors, initial encounter
CPT/HCPCS: 73721

== ENCOUNTER 2023-08-16 18:25 | Emergency (ER) | payer MEDICAID, SELFPAY ==
[2023-08-16 18:38] VITALS: BP 122/78; PULSE 84; RESP 18; TEMP 36.9; O2SAT 97
[2023-08-16 20:43] LABS: Basophils % 0.3 %; Eosinophils # 0.2 10^3/uL (0.0-0.8); Eosinophils % 1.9 %; Hematocrit 33.4 % (36-47); Lymphocytes # 1.3 10^3/uL (0.8-4.8); Lymphocytes % 11.8 %; Mean Corpuscular HGB Conc 30.8 g/dL (30-55); Mean Corpuscular Hemoglobin 24.3 pg (27-33); Mean Corpuscular Volume 78.8 fl (85-98); Mean Platelet Volume 9.8 fL (7.4-10.4); Monocytes # 0.4 10^3/uL (0.2-0.9); Monocytes % 3.8 %; Neutrophils % 81.8 %; Nucleated Red Blood Cells % 0 %; Platelet Count 425 10^3/cmm (157-399); Red Blood Count 4.24 10^6/uL (3.85-5.65); Red Cell Distribution Width 17.2 % (12.1-15.1); White Blood Count 11.36 10^3/uL (3.29-11.43)
[2023-08-16 21:01] LABS: Alanine Aminotransferase 25 U/L (0-33); Albumin Level 4.3 g/dL (3.5-5.2); Alkaline Phosphatase 85 U/L (35-105); Anion Gap 15.7 (5-19); Aspartate Amino Transferase 20 U/L (0-32); Blood Urea Nitrogen 20 mg/dL (6-20); Calcium 9.2 mg/dL (8.5-10.5); Carbon Dioxide 24 mmol/L (22-29); Chloride 103 mmol/L (98-107); Creatinine Clr Calc Pharmacy 119.6052; Globulin 4.2 g/dL (1.3-4.6); Glucose 125 mg/dL (65-115); Lipase 32 U/L (13-60); Osmolality Calculated 292 mOsm/kg (285-295); Potassium 3.7 mmol/L (3.5-5.1); Sodium 139 mmol/L (136-145); Total Bilirubin 0.4 mg/dL (0.15-1.2); Total Protein 8.5 g/dL (6.6-8.7)
[2023-08-16 21:08] LABS: Procalcitonin 0.05 ng/mL (0-0.5)
[2023-08-16 21:31] LABS: Add Urine Microscopic? NO; Charge for UA Resulting for Rev
[2023-08-16 21:45] LABS: Bilirubin Urine 2+ (Negative); Blood Urine Neg (Negative); Glucose Urine UA Norm (Normal); HCG Qualitative Urine. Negative (Negative); Ketones Urine Negative (Negative); Leukocyte Esterase Urine Negative (Negative); Nitrate Urine Negative (Negative); Protein Urine Neg (Negative); Urine Appearance Clear (CLEAR); Urine Color Dark Yellow (Yellow); Urobilinogen Urine Neg (Negative); pH Urine 5 (5-7)
[2023-08-16 21:45] LABS: Amphetamines Screen Urine Negative (Negative); Barbiturates Screen Urine Negative (Negative); Benzodiazepines Screen Urine Negative (Negative); Cocaine Screen Urine Negative (Negative); Opiate Screen Urine Negative (Negative); PCP Screen Urine Negative (Negative); THC Screen Urine Negative (Negative)
--- NOTE | 2023-08-16 22:00 | CTR_ITS ---
PROCEDURE INFORMATION: Exam: CT Abdomen And Pelvis With Contrast Exam date and time: 08/16/2023 10:25 PM Age: 33 years old Clinical indication: Abdominal pain; Patient HX: Recent laminectomy surgery 1 week ago TECHNIQUE: Imaging protocol: Computed tomography of the abdomen and pelvis with contrast. Radiation optimization: All CT scans at this facility use at least one of these dose optimization techniques: automated exposure control; mA and/or kV adjustment per patient size (includes targeted exams where dose is matched to clinical indication); or iterative reconstruction. Contrast material: OMNI 350; Contrast volume: 100 ml; Contrast route: INTRAVENOUS (IV); COMPARISON: ES surgery / GI images 08/10/2021 8:18 AM RADIATION DOSE METRICS: Total DLP (mGy-cm): 1038.91 FINDINGS: Lungs: Clear basilar lung parenchyma. Pleural spaces: No pleural fluid. Heart: Normal heart size. Liver: Homogeneous low attenuation throughout the liver is compatible with fatty infiltration. Gallbladder and bile ducts: Tiny gallstones are noted in the thin walled gallbladder. No biliary tree dilation. Pancreas: Normal. No ductal dilation. Spleen: Normal. No splenomegaly. Adrenal glands: Normal configuration. Kidneys and ureters: Kidneys enhance symmetrically and demonstrate no evidence of mass, calculus, obstruction, or inflammation. Stomach and bowel: Postprandial stomach. Normal caliber small bowel. There is liquid fecal debris throughout the lumen of the colon. Mild enhancement of the colonic mucosa noted. Appendix: Normal appendix is confirmed. Intraperitoneal space: No free air. No significant fluid collection. Vasculature: Normal caliber arterial structures. Lymph nodes: No enlarged lymph nodes. Urinary bladder: Unremarkable as visualized. Reproductive: Bicornuate uterus noted. No adnexal mass. Bones/joints: No fracture or destructive lesion. Soft tissues: Unremarkable. CT/CT abdomen pelvis w con* [id number] IMPRESSION: 1. Exam demonstrates features of colitis. 2. Cholelithiasis without evidence of acute cholecystitis. 3. Bicornuate uterus noted.
--- NOTE | 2023-08-16 22:01 | ED_ITS ---
Documented by User: MICKEY Davey 08/16/23 23:23 HPI - Abdominal Pain 2 General: Chief Complaint: Abdominal Pain Stated Complaint: ABD Pain Time Seen by Provider: 08/16/23 21:51 Source: patient Mode of arrival: ambulatory Limitations: no limitations History of Present Illness: Patient is a 33-year-old female presents to the emergency department complaining of abdominal pain onset earlier today in the afternoon. Patient notes sudden onset of nausea/vomiting, which was subsequently followed by the diffuse abdominal pain, that seems to be worse in the epigastrium. She has never had this pain before. She does not relate the pain to eating. She still has her gallbladder and appendix. The pain feels stabbing, she has not taken anything for pain prior to arrival. She denies any fever, changes in bowel or bladder, chest pains, breathing difficulties, or any other symptoms. She does note that the pain seems to be getting worse and has been constant since onset. She denies any coffee-ground emesis or gross blood in her vomit. MD elicited complaint: abdominal pain Pertinent past history: none Onset (ago): hour(s) Pain Consistency: constant Location: Diffuse and Epigastric Severity: moderate Quality: stabbing Associated Symptoms: Reports nausea and vomiting; Denies change in bowel habits, chills, coffee ground emesis, constipation, diarrhea, dysuria, fever(s) and hematemesis Related Data: Date of Last Menstrual Period: 08/02/23 Review of Systems 2 General: Reports: 10 or more systems reviewed and unremarkable except in HPI and below Const: Denies: fever(s), chills, change in appetite, change in weight or diaphoresis ENMT: Denies: throat pain or hoarseness Card: Denies: chest pain, palpitations or lightheadedness Resp: Denies: dyspnea, productive cough or wheezing GI: Reports: abdominal pain, nausea and vomiting; Denies: hematemesis, coffee ground emesis, diarrhea, constipation, change in bowel habits or pain on defecation : Denies: flank pain, difficulty voiding, dysuria, urinary frequency or urinary urgency Musc: Denies: neck pain or back pain Skin/Breast: Denies: rash or new lesions Neuro: Denies: headache(s) or dizziness PFSH ED 2 PFSH: Medical History Tendinitis of finger of left hand Abnormal flow volume loop Chronic pain of right wrist Asthma 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 Surgical History H/O right knee surgery Family History Denies family history of Colon cancer Ovarian cancer Diabetes Heart disease Hyperlipidemia Breast cancer Hypertension Uterine cancer Thyroid disease Stroke Female Reproductive History: Date of last menstrual period: 08/02/23 Physical Exam 2 Const: COMMON NORMALS: no acute distress, average body habitus, patient oriented x3, no limitations, healthy appearing, alert and well nourished G ENERAL APPEARANCE: cooperative and comfortable ORIENTATION/CONSCIOUSNESS: Yes awake HENMT: COMMON NORMALS: normocephalic, atraumatic, hearing grossly normal bilaterally, external ears normal, Normal external nose present, Normal nasal mucous membranes and turbinates present and moist oral mucous membranes HEAD & SCALP: normocephalic and atraumatic NOSE: Normal external nose present and Normal nasal mucous membranes and turbinates present EXTERNAL EAR: Yes external ears normal Eye: COMMON NORMALS: Equal, round and reactive pupils present, EOMs intact bilaterally, conjunctivae normal and normal visual rucker by confrontation C ONJUNCTIVA: Yes conjunctivae normal PUPIL: Yes Equal, round and reactive pupils present Neck/C-Spine: COMMON NORMALS: full ROM, supple, no meningeal signs and no JVD Resp: COMMON NORMALS: normal respiratory effort, No retractions, No use of accessory muscles and clear to auscultation bilaterally AUSCULTATION: clear to auscultation bilaterally, no crackles, no rales, no rhonchi and no wheezes Cardio: COMMON NORMALS: no JVD, regular rate, regular rhythm, S1 normal heart sound present, S2 normal heart sound present, No gallops present (Cardio), No clicks present (Cardio), No murmurs present (Cardio), No rub (Cardio) and Peripheral pulses 2+ throughout RATE: regular rate RHYTHM: regular rhythm HEART SOUNDS: S1 normal heart sound present and S2 normal heart sound present PERIPHERAL PULSES: Peripheral pulses 2+ throughout GI: COMMON NORMALS: Normal to inspection, nondistended, normoactive bowel sounds present, Soft to palpation, No hepatosplenomegaly present and no masses INSPECTION: Yes central obesity AUSCULTATION: Yes normoactive bowel sounds PALPATION: Yes Soft to palpation, Yes Tenderness to palpation present (GI) (Mild diffuse TTP), No Guarding due to palpation present (GI), No Rigid due to palpation and Yes No hepatosplenomegaly present RECTAL EXAM: deferred O THER: Negative De La O sign, negative McBurney's point tenderness : COMMON NORMALS: Yes no CVA tenderness BLADDER/KIDNEY EXAM: Yes no CVA tenderness Back/Pelvis: COMMON NORMALS: no CVA tenderness Extremity: COMMON NORMALS: normal to inspection and full ROM Neuro: COMMON NORMALS: patient oriented x3, moves all extremities, no focal motor deficits and no sensory deficits noted SENSORIUM/ORIENTATION: Yes alert MENINGEAL SIGNS: Yes no meningeal signs Psych: COMMON NORMALS: mental status grossly normal, cooperative and speech normal SPEECH: Yes normal speech Skin: COMMON NORMALS: no rashes or lesions noted GENERAL SKIN EXAM: no rashes or lesions noted Course 2 Vital Signs: Vital signs: Vital Signs Temperature 98.5 F 08/16/23 18:38 Pulse Rate 80 08/16/23 23:16 Respiratory Rate 16 08/16/23 23:16 Blood Pressure 122/78 08/16/23 18:38 Pulse Oximetry 98 08/16/23 23:16 Oxygen Delivery Me thod Room Air 08/16/23 23:16 MDM - Abdominal Pain Medical Decision Making Patient seen and evaluated for sudden onset of abdominal pain with associated nausea vomiting today. Patient has never had this pain before. On arrival vitals normal. Labs unremarkable aside from a slightly decreased hemoglobin, of which I told the patient to follow-up with her primary care for retesting. Negative UA and CMP. Due to her continued pain, ordered a CT abdomen pelvis which showed evidence of colitis. For this, I will give her first dose of Cipro and Flagyl prior to discharge with prescriptions. She also states she feels better after receiving IV fluids and Zofran. Reasons to return are discussed. Patient agrees with plan. Lab Data I reviewed the patient's lab results. 08/16/23 20:36 08/16/23 20:36 Labs/Radiology: Radiology Impressions Abdomen/Pelvis CT 08/16/23 22:00 IMPRESSION: 1. Exam demonstrates features of colitis. 2. Cholelithiasis without evidence of acute cholecystitis. 3. Bicornuate uterus noted. Laboratory Results WBC 11.36 10^3/uL (3.29-11.43) 08/16/23 20:36 RBC 4.24 10^6/uL (3.85-5.65) 08/16/23 20:36 Hgb 10.30 g/dL (11.27-16.99) L 08/16/23 20:36 Hct 33.4 % (36-47) L 08/16/23 20:36 MCV 78.8 fl (85-98) L 08/16/23 20:36 MCH 24.3 pg (27-33) L 08/16/23 20: MCHC 30.8 g/dL (30-55) 08/16/23 20:36 RDW 17.2 % (12.1-15.1) H 08/16/23 20:36 Plt Count 425 10^3/cmm (157-399) H 08/16/23 20:36 MPV 9.8 fL (7.4-10.4) 08/16/23 20:36 Neut % (Auto) 81.8 % 08/16/23 20:36 Lymph % (Auto) 11.8 % 08/16/23 20:36 [place] % (Auto) 3.8 % 08/16/23 20:36 Eos % (Auto) 1.9 % 08/16/23 20:36 Baso % (Auto) 0.3 % 08/16/23 20:36 Neut # (Auto) 9.30 10^3/uL (1.8-7.7) H 08/16/23 20:36 Lymph # (Auto) 1.3 10^3/uL (0.8-4.8) 08/16/23 20:36 [place] # (Auto) 0.4 10^3/uL (0.2-0.9) 08/16/23 20:36 Eos # (Auto) 0.2 10^3/uL (0.0-0.8) 08/16/23 20:36 Baso # (Auto) 0.0 10^3/uL (0.0-0.1) 08/16/23 20:36 Nucleated RBC % (auto) 0 % 08/16/23 20:36 Nucleated RBCs # 0.0 /100WBC 08/16/23 20:36 Sodium 139 mmol/L (136-145) 08/16/23 20:36 Potassium 3.7 mmol/L (3.5-5.1) 08/16/23 20:36 Chloride 103 mmol/L (98-107) 08/16/23 20:36 Carbon Dioxide 24 mmol/L (22-29) 08/16/23 20:36 Anion Gap 15.7 (5-19) 08/16/23 20:36 BUN 20 mg/dL (6-20) 08/16/23 20:36 Creatinine 0.7 mg/dL (0.5-0.9) 08/16/23 20:36 GFR Calculation 97.0 mL/min (90-130) 08/16/23 20:36 Glucose 125 mg/dL (65-115) H 08/16/23 20:36 Calculated Osmolality 292 mOsm/kg (285-295) 08/16/23 20:36 Lactic Acid 1.0 mmol/L (0.5-2.2) 08/16/23 20:36 Calcium 9.2 mg/dL (8.5-10.5) 08/16/23 20:36 Total Bilirubin 0.4 mg/dL (0.15-1.2) 08/16/23 20:36 AST 20 U/L (0-32) 08/16/23 20:36 ALT 25 U/L (0-33) 08/16/23 20:36 Alkaline Phosphatase 85 U/L (35-105) 08/16/23 20:36 Total Protein 8.5 g/dL (6.6-8.7) 08/16/23 20:36 Albumin 4.3 g/dL (3.5-5.2) 08/16/23 20:36 Globulin 4.2 g/dL (1.3-4.6) 08/16/23 20:36 Lipase 32 U/L (13-60) 08/16/23 20:36 Procalcitonin 0.05 ng/mL (0-0.5) 08/16/23 20:36 HCG, Qual Negative (Negative) 08/16/23: Urine Color Dark yellow (Yellow) 08/16/23 21:23 Urine Appearance Clear (CLEAR) 08/16/23 21:23 Urine pH 5 (5-7) 08/16/23 21:23 Ur Specific [place] 1.030 (1.005-1.030) 08/16/23 21:23 Urine Protein Neg (Negative) 08/16/23 21:23 Urine Glucose (UA) Norm (Normal) 08/16/23 21: Urine Ketones Negative (Negative) 08/16/23 21: Urine Blood Neg (Negative) 08/16/23 21: Urine Nitrate Negative (Negative) 08/16/23 21:23 Urine Bilirubin 2+ (Negative) H 08/16/23 21:23 Urine Urobilinogen Neg mg/dL (Negative) 08/16/23 21: Ur Leukocyte Esterase Negative (Negative) 08/16/23 21: Urine Opiates Screen Negative ng/mL (Negative) 08/16/23 Unknown Ur Barbiturates Screen Negative ng/mL (Negative) 08/16/23 Unknown Ur Phencyclidine Scrn Negative ng/mL (Negative) 08/16/23 Unknown Ur Amphetamines Screen Negative ng/mL (Negative) 08/16/23 Unknown U Benzodiazepines Scrn Negative ng/mL (Negative) 08/16/23 Unknown Urine Cocaine Screen Negative ng/mL (Negative) 08/16/23 Unknown U Marijuana (THC) Screen Negative ng/mL (Negative) 08/16/23 Unknown All radiology interpretation(s) finalized by discharge Discharge Plan Discharge Patient Disposition: Home Clinical Impression: Colitis Condition: Stable Prescriptions: New metronidazole 500 mg tablet 500 mg PO BID 7 Days Qty: 14 0RF Cipro 500 mg tablet 500 mg PO BID 10 Days Qty: 20 0RF No Action (DME) LSO brace See Rx Instructions .Route .MEDSUPPLY Qty: 1 0RF Rx Instructions: As directed Victoza 3-Rashid 0.6 mg/0.1 mL (18 mg/3 mL) pen injector 1.2 mg SUBCUT DAILY Qty: 9 0RF (DME) Left Knee Patellar Instability Brace See Rx Instructions .Route .MEDSUPPLY Qty: 1 0RF Rx Instructions: As directed albuterol sulfate 90 mcg/actuation HFA aerosol inhaler 2 puff inhalation Q6H PRN (Reason: shortness of breath or wheezing) 30 Days Qty: 8.5 3RF (DME) patellar stabilizing knee brace left See Rx Instructions .Route .MEDSUPPLY Qty: 1 0RF Rx Instructions: As directed hydrocodone-acetaminophen 5-325 mg tablet 1 - 2 tab PO .Q4-6H Qty: 40 0RF Discharge Orders: Discharge ED (Routine); Ordered 08/16/23 Ordered By: Nathan Crump Referrals: Lashonda Hunt DO [Primary Care Provider] - Discharge Diet: Usual diet Discharge Activity: Increase activity as tolerated Patient Instructions: Colitis (ED) Activity Restrictions/Additional Instructions: Cipro and metronidazole as prescribed. Plenty of fluids. Follow-up with your primary care provider. Return with any new or worsening symptoms. 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 Surgical History H/O right knee surgery Family History Denies family history of Colon cancer Ovarian cancer Diabetes Heart disease Hyperlipidemia Breast cancer Hypertension Uterine cancer Thyroid disease Stroke Course 2 Vital Signs: Vital signs: Vital Signs Temperature 98.5 F 08/16/23 18:38 Pulse Rate 80 08/16/23 23:16 Respiratory Rate 16 08/16/23 23:16 Blood Pressure 122/78 08/16/23 18:38 Pulse Oximetry 98 08/16/23 23:16 Oxygen Delivery Me thod Room Air 08/16/23 23:16 MDM - Abdominal Pain Medical Decision Making Patient seen and evaluated for sudden onset of abdominal pain with associated nausea vomiting today. Patient has never had this pain before. On arrival vitals normal. Labs unremarkable aside from a slightly decreased hemoglobin, of which I told the patient to follow-up with her primary care for retesting. Negative UA and CMP. Due to her continued pain, ordered a CT abdomen pelvis which showed evidence of colitis. For this, I will give her first dose of Cipro and Flagyl prior to discharge with prescriptions. She also states she feels better after receiving IV fluids and Zofran. Reasons to return are discussed. Patient agrees with plan. Chart reviewed Lab Data 08/16/23 20:36 08/16/23 20:36 Labs/Radiology: Radiology Impressions Abdomen/Pelvis CT 08/16/23 22:00 IMPRESSION: 1. Exam demonstrates features of colitis. 2. Cholelithiasis without evidence of acute cholecystitis. 3. Bicornuate uterus noted. Laboratory Results WBC 11.36 10^3/uL (3.29-11.43) 08/16/23 20:36 RBC 4.24 10^6/uL (3.85-5.65) 08/16/23 20:36 Hgb 10.30 g/dL (11.27-16.99) L 08/16/23 20:36 Hct 33.4 % (36-47) L 08/16/23 20:36 MCV 78.8 fl (85-98) L 08/16/23 20:36 MCH 24.3 pg (27-33) L 08/16/23 20:36 MCHC 30.8 g/dL (30-55) 08/16/23 20:36 RDW 17.2 % (12.1-15.1) H 08/16/23 20:36 Plt Count 425 10^3/cmm (157-399) H 08/16/23 20:36 MPV 9.8 fL (7.4-10.4) 08/16/23 20:36 Neut % (Auto) 81.8 % 08/16/23 20:36 Lymph % (Auto) 11.8 % 08/16/23 20:36 [place] % (Auto) 3.8 % 08/16/23 20:36 Eos % (Auto) 1.9 % 08/16/23 20:36 Baso % (Auto) 0.3 % 08/16/23 20:36 Neut # (Auto) 9.30 10^3/uL (1.8-7.7) H 08/16/23 20:36 Lymph # (Auto) 1.3 10^3/uL (0.8-4.8) 08/16/23 20:36 [place] # (Auto) 0.4 10^3/uL (0.2-0.9) 08/16/23 20:36 Eos # (Auto) 0.2 10^3/uL (0.0-0.8) 08/16/23 20:36 Baso # (Auto) 0.0 10^3/uL (0.0-0.1) 08/16/23 20:36 Nucleated RBC % (auto) 0 % 08/16/23 20:36 Nucleated RBCs # 0.0 /100WBC 08/16/23 20:36 Sodium 139 mmol/L (136-145) 08/16/23 20:36 Potassium 3.7 mmol/L (3.5-5.1) 08/16/23 20:36 Chloride 103 mmol/L (98-107) 08/16/23 20:36 Carbon Dioxide 24 mmol/L (22-29) 08/16/23 20:36 Anion Gap 15.7 (5-19) 08/16/23 20:36 BUN 20 mg/dL (6-20) 08/16/23 20:36 Creatinine 0.7 mg/dL (0.5-0.9) 08/16/23 20:36 GFR Calculation 97.0 mL/min (90-130) 08/16/23 20:36 Glucose 125 mg/dL (65-115) H 08/16/23 20:36 Calculated Osmolality 292 mOsm/kg (285-295) 08/16/23 20:36 Lactic Acid 1.0 mmol/L (0.5-2.2) 08/16/23 20:36 Calcium 9.2 mg/dL (8.5-10.5) 08/16/23 20:36 Total Bilirubin 0.4 mg/dL (0.15-1.2) 08/16/23 20:36 AST 20 U/L (0-32) 08/16/23 20:36 ALT 25 U/L (0-33) 08/16/23 20:36 Alkaline Phosphatase 85 U/L (35-105) 08/16/23 20:36 Total Protein 8.5 g/dL (6.6-8.7) 08/16/23 20:36 Albumin 4.3 g/dL (3.5-5.2) 08/16/23 20:36 Globulin 4.2 g/dL (1.3-4.6) 08/16/23 20:36 Lipase 32 U/L (13-60) 08/16/23 20:36 Procalcitonin 0.05 ng/mL (0-0.5) 08/16/23 20:36 HCG, Qual Negative (Negative) 08/16/23 21:23 Urine Color Dark yellow (Yellow) 08/16/23 21:23 Urine Appearance Clear (CLEAR) 08/16/23 21:23 Urine pH 5 (5-7) 08/16/23 21:23 Ur Specific [place] 1.030 (1.005-1.030) 08/16/23 21:23 Urine Protein Neg (Negative) 08/16/23 21:23 Urine Glucose (UA) Norm (Normal) 08/16/23 21:23 Urine Ketones Negative (Negative) 08/16/23 21:23 Urine Blood Neg (Negative) 08/16/23 21:23 Urine Nitrate Negative (Negative) 08/16/23 21:23 Urine Bilirubin 2+ (Negative) H 08/16/23 21:23 Urine Urobilinogen Neg mg/dL (Negative) 08/16/23 21:23 Ur Leukocyte Esterase Negative (Negative) 08/16/23 21:23 Urine Opiates Screen Negative ng/mL (Negative) 08/16/23 Unknown Ur Barbiturates Screen Negative ng/mL (Negative) 08/16/23 Unknown Ur Phencyclidine Scrn Negative ng/mL (Negative) 08/16/23 Unknown Ur Amphetamines Screen Negative ng/mL (Negative) 08/16/23 Unknown U Benzodiazepines Scrn Negative ng/mL (Negative) 08/16/23 Unknown Urine Cocaine Screen Negative ng/mL (Negative) 08/16/23 Unknown U Marijuana (THC) Screen Negative ng/mL (Negative) 08/16/23 Unknown Discharge Plan Discharge Patient Disposition: Home Clinical Impression: Colitis Condition: Stable Prescriptions: New metronidazole 500 mg tablet 500 mg PO BID 7 Days Qty: 14 0RF Cipro 500 mg tablet 500 mg PO BID 10 Days Qty: 20 0RF No Action (DME) LSO brace See Rx Instructions .Route .MEDSUPPLY Qty: 1 0RF Rx Instructions: As directed Victoza 3-Rashid 0.6 mg/0.1 mL (18 mg/3 mL) pen injector 1.2 mg SUBCUT DAILY Qty: 9 0RF (DME) Left Knee Patellar Instability Brace See Rx Instructions .Route .MEDSUPPLY Qty: 1 0RF Rx Instructions: As directed albuterol sulfate 90 mcg/actuation HFA aerosol inhaler 2 puff inhalation Q6H PRN (Reason: shortness of breath or wheezing) 30 Days Qty: 8.5 3RF (DME) patellar stabilizing knee brace left See Rx Instructions .Route .MEDSUPPLY Qty: 1 0RF Rx Instructions: As directed hydrocodone-acetaminophen 5-325 mg tablet 1 - 2 tab PO .Q4-6H Qty: 40 0RF Discharge Orders: Discharge ED (Routine); Ordered 08/16/23 Ordered By: Nathan Crump Referrals: Lashonda Hunt DO [Primary Care Provider] - Discharge Diet: Usual diet Discharge Activity: Increase activity as tolerated Patient Instructions: Colitis (ED) Activity Restrictions/Additional Instructions: Cipro and metronidazole as prescribed. Plenty of fluids. Follow-up with your primary care provider. Return with any new or worsening symptoms. Coding Level of Care Code ED Furnace Attendant for Alix Rubalcava
[2023-08-16] MEDS: ondansetron 2 mg/ML SDV 2 mL 4 MG IVP (22:17)
[2023-08-16] MEDS: sodium chloride 0.9% 1,000 ML 999 ML IV (22:17)
[2023-08-16] MEDS: iohexol 350 mg/mL 500 mL Btl (per mL) IV (22:28)
[2023-08-16 23:16] VITALS: PULSE 80; RESP 16; O2SAT 98
[2023-08-16] MEDS: ciprofloxacin 500 mg Tablet PO (23:17)
[2023-08-16] MEDS: metroNIDAZOLE 500 MG Tablet PO (23:17)
== END 2023-08-16 23:20 | disposition home or self-care (01) ==
PROVIDERS: Internal Medicine; Emergency Provider Physician Assistant; PCP Family Medicine
DX: K52.9 Noninfective gastroenteritis and colitis, unspecified (principal)
CPT/HCPCS: 36415; 74177; 80053; 80306; 81003; 81025; 83605; 83690; 84145; 85025; 96361; 96374; 99285; J2405; J7030; Q9967

== ENCOUNTER 2023-09-10 13:07 | Outpatient (CLI) | payer MEDICAID, SELFPAY ==
--- NOTE | 2023-09-10 13:30 | CT_ITS ---
WS: [id number] CT LEFT KNEE, NONCONTRAST HISTORY: left knee injury Technique: All CT scans at [facility] use at least one of these dose optimization techniques: automated exposure control; mA and/or kV adjustment per patient size (includes targeted exams where dose is matched to clinical indication); or iterative reconstruction. DLP: 448.33 mGy.cm COMPARISON: Prior MRI 08/07/2023 No acute fracture. Mild narrowing the medial compartment. There are a few small osseous or calcified densities along the joint line at the knee. There is slight lateral subluxation of the patella. Femoral trochlea appears shallow. Imaging is perf ormed with the patient's leg extended which can exacerbate lateral subluxation of the patella. There is a well-corticated osseous density measuring 1.2 x 1.0 cm along the medial margin of the patella. T his may be from an old injury and related to prior patellar dislocations. There is a small suprapatel lar joint effusion. No muscle atrophy. IMPRESSION: 1. No acute fracture. 2. Mild lateral subluxation of the patella with relationship to the trochlear groove. Imaging was pe rformed with the patient's leg extended without flexion which can exacerbate mild lateral subluxation of the patella. 3. There are several loose bodies in the knee joints. The largest fragment measures 1.2 x 1.0 cm adj acent to the lateral patella. This may be fracture fragment from prior injury such as dislocation.
== END 2023-09-10 13:08 | disposition home or self-care (01) ==
LOC: RAD 13:07
PROVIDERS: PCP Family Medicine; Visit Provider Physician Assistant
DX: M23.42 Loose body in knee, left knee (principal); M25.362 Other instability, left knee
CPT/HCPCS: 73700

== ENCOUNTER 2023-10-19 12:15 | Emergency (ER) | payer MEDICAID, SELFPAY ==
--- NOTE | 2023-10-19 12:18 | XRR_ITS ---
PROCEDURE INFORMATION: Exam: XR Chest Exam date and time: 10/19/2023 12:55 PM Age: 33 years old Clinical indication: Patient HX: Fever x 5 days; Cough; SOB; Congestion TECHNIQUE: Imaging protocol: Radiologic exam of the chest. Views: 1 view. COMPARISON: CT chest [facility] [id number] 03/29/2022 7:34 AM FINDINGS: Lungs: Unremarkable. No consolidation. Pleural spaces: Unremarkable. No pleural effusion. No pneumothorax. Heart/Mediastinum: Unremarkable. No cardiomegaly. Bones/joints: Unremarkable. XR/XR chest 1V portable [id number] IMPRESSION: No acute findings.
[2023-10-19 12:28] VITALS: BP 115/65; PULSE 69; RESP 17; TEMP 36.8; O2SAT 97; BMI 36.6
[2023-10-19 12:33] VITALS: BP 115/65; PULSE 91; O2SAT 98
[2023-10-19] MEDS: ipratropium-albuterol 3 mL Neb 6 ML INHALATION (13:20)
[2023-10-19 13:21] VITALS: PULSE 83; RESP 20; O2SAT 95
--- NOTE | 2023-10-19 13:21 | ED_ITS ---
HPI - URI/Sore Throat General: Chief Complaint: Upper Respiratory Infection Stated Complaint: sob,cough,fever Time Seen by Provider: 10/19/23 12:32 Source: patient and family Mode of arrival: ambulatory Limitations: no limitations History of Present Illness: Patient comes in for 1 week of cough and feeling bad and previous antibiotics no known fever. 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 Surgical History H/O right knee surgery Family History Denies family history of Colon cancer Ovarian cancer Diabetes Heart disease Hyperlipidemia Breast cancer Hypertension Uterine cancer Thyroid disease Stroke Social History Smoking and tobacco/nicotine status: current every day tobacco/nicotine user (Nicotine Vape) Physical Exam Const: COMMON NORMALS: no acute distress, average body habitus, patient oriented x3, healthy appearing, alert and well nourished GENERAL APPEARANCE: well kempt and well developed HENMT: COMMON NORMALS: normocephalic, atraumatic, external ears normal and moist oral mucous membranes HEAD & SCALP: normocephalic and atraumatic EXTERNAL EAR: Yes external ears normal Eye: COMMON NORMALS: Equal, round and reactive pupils present, EOMs intact bilaterally and conjunctivae normal CONJUNCTIVA: Yes conjunctivae normal PUPIL: Yes Equal, round and reactive pupils present Neck/C-Spine: COMMON NORMALS: full ROM, no lymphadenopathy and supple Chest: CHEST: Yes Symmetrical chest wall rise and No Surgical scars present (Chest) Resp: COMMON NORMALS: normal respiratory effort, No retractions, No use of accessory muscles and clear to auscultation bilaterally AUSCULTATION: clear to auscultation bilaterally OTHER: Bronchospastic sounding cough Cardio: COMMON NORMALS: regular rate, regular rhythm, S1 normal heart sound present, S2 normal heart sound present, No gallops present (Cardio), No clicks present (Cardio), No murmurs present (Cardio) and No rub (Cardio) RATE: regular rate RHYTHM: regular rhythm HEART SOUNDS: S1 normal heart sound present, S2 normal heart sound present and no murmurs PERIPHERAL PULSES: other (Radial pulses 2+ and symmetric) GI: COMMON NORMALS: Soft to palpation, non-tender and no masses INSPECTION: No abdominal distension PALPATION: Yes Soft to palpation, No Guarding due to palpation present (GI) and No Rebound tenderness present : COMMON NORMALS: Yes no CVA tenderness BLADDER/KIDNEY EXAM: Yes no CVA tenderness Back/Pelvis: COMMON NORMALS: no CVA tenderness Extremity: COMMON NORMALS: normal to inspection, full ROM, capillary refill normal and no clubbing, cyanosis or edema Neuro: COMMON NORMALS: patient oriented x3 SENSORIUM/ORIENTATION: Yes alert Psych: APPEARANCE: Yes well kempt Skin: COMMON NORMALS: no rashes or lesions noted, no wounds, turgor normal and no jaundice GENERAL SKIN EXAM: no rashes or lesions noted and turgor normal Course Reevaluation(s): Reevaluation #1: still some cough but improved. Reviewed results with patient. Okay for discharge. Time: 15:00 Vital Signs: Vital signs: Vital Signs Temperature 98.3 F 10/19/23 12:28 Pulse Rate 91 10/19/23 12:33 Respiratory Rate 17 10/19/23 12:28 Blood Pressure 115/65 10/19/23 12:33 Pulse Oximetry 98 10/19/23 12:33 Oxygen Delivery Me thod Room Air 10/19/23 12:33 MDM - URI/Sore Throat Medical Decision Making Patient with cough negative chest x-ray on personal review as well as a radiology read is negative. Offered shot to help with things but patient declined. Prefers by mouth pills. Will discharge with prescription to pharmacy as well. History provided by patient and by significant other/family member. Medical Records I reviewed the patient's medical records. Lab Data I reviewed the patient's lab results. All radiology interpretation(s) finalized by discharge ED provider radiology interpretation(s): see [facility] Discharge Plan Discharge Patient Disposition: Home Clinical Impression: Asthma exacerbation, mild, Bronchitis Upper respiratory infection Qualifiers: URI type: unspecified viral URI Qualified Code(s): J06.9 - Acute upper respiratory infection, unspecified Condition: Stable Prescriptions: New benzonatate 200 mg capsule 200 mg PO TID PRN (Reason: cough) Qty: 21 0RF amoxicillin-pot clavulanate 875-125 mg tablet 1 tab PO BID 7 Days Qty: 14 0RF albuterol sulfate 90 mcg/actuation HFA aerosol inhaler 2 inh inhalation Q4H PRN (Reason: shortness of breath or wheezing) Qty: 8.5 0RF prednisone 20 mg tablet 40 mg PO DAILY 5 Days Qty: 10 0RF Discharge Orders: Discharge ED (Routine); Ordered 10/19/23 Ordered By: Bolivar Fry Referrals: Lashonda Hunt DO [Primary Care Provider] - Patient Instructions: Acute Bronchitis (ED) Stand Alone Forms: Work/School Release Coding Level of Care Code ED Bag Machine Set Up Operator for Alix Rubalcava
[2023-10-19 13:28] VITALS: PULSE 87; RESP 20; O2SAT 96
[2023-10-19] MEDS: amoxicillin-clav 875-125 mg Tablet 1 TAB PO (15:02)
[2023-10-19] MEDS: predniSONE 20 mg Tablet 60 MG PO (15:02)
[2023-10-19] MEDS: benzonatate 100 mg Capsule 200 MG PO (15:02)
[2023-10-19 15:18] VITALS: BP 119/72; PULSE 86; RESP 18; O2SAT 97
== END 2023-10-19 15:18 | disposition home or self-care (01) ==
PROVIDERS: Emergency Provider Emergency Medicine; PCP Family Medicine
DX: J06.9 Acute upper respiratory infection, unspecified (principal); J40 Bronchitis, not specified as acute or chronic; J45.901 Unspecified asthma with (acute) exacerbation; F17.290 Nicotine dependence, other tobacco product, uncomplicated
CPT/HCPCS: 71045; 94640; 99283; J7512

== ENCOUNTER → 2023-10-22 13:05 | Outpatient (BNVA) | payer MEDICAID, SELFPAY | PROVIDERS: PCP Family Medicine; Visit Provider Orthopaedic Surgery | DX: M25.552 Pain in left hip (principal) | CPT/HCPCS: 73502 ==

== ENCOUNTER 2023-10-26 19:56 | Emergency (ER) | payer MEDICAID, SELFPAY ==
[2023-10-26 20:34] VITALS: BP 118/70; PULSE 114; RESP 24; TEMP 39.4; O2SAT 100; BMI 36.6
--- NOTE | 2023-10-26 21:41 | XRR_ITS ---
PROCEDURE INFORMATION: Exam: XR Chest Exam date and time: 10/26/2023 10:06 PM Age: 33 years old Clinical indication: Cough and fever; Patient HX: C/O cough with fever. History of asthma. ; Additional info: Cough/fever TECHNIQUE: Imaging protocol: Radiologic exam of the chest. Views: 1 view. COMPARISON: CR (CHEST, ) 10/19/2023 12:55 PM FINDINGS: Lungs: Unremarkable. No consolidation. Pleural spaces: Unremarkable. No pleural effusion. No pneumothorax. Heart/Mediastinum: Unremarkable. No cardiomegaly. Bones/joints: Unremarkable. XR/XR chest 1V portable [id number] IMPRESSION: No acute findings.
--- NOTE | 2023-10-26 21:44 | W.ED.FEVER ---
Documented by User: MICKEY Davey 10/27/23 00:52 HPI - Fever General: Chief Complaint: Fever Stated Complaint: high fever at home Time Seen by Provider: 10/26/23 21:07 Source: patient Mode of arrival: ambulatory Limitations: no limitations History of Present Illness: Patient is a 33-year-old female presenting to the emergency department complaining of fever onset today. Patient seen in the emergency department 1 week ago where she is prescribed antibiotics and steroids for an upper respiratory infection. She states that her symptoms were improving up until today when she had the sudden onset of nausea, vomiting, lethargy, increased cough, and a fever of 105. She arrives to the emergency department with a temp of 103 and is tachycardic. However she is 100% on room air. She notes some abdominal cramping, though denies any diarrhea or other changes in bowel or bladder. She has since finished her medications that she was prescribed last week. No other symptoms to report at this time. No pertinent past medical history to report. MD elicited complaint: fever Onset (ago): hour(s) Measured temperature: 105 F Context: recent antibiotic use Associated symptoms: Reports abdominal pain, nausea and vomiting; Deny flank pain, chills, chest pain, diarrhea, dysuria or headache(s) Review of Systems General: Reports: 10 or more systems reviewed and unremarkable except in HPI and below Const: Reports: fever(s) and malaise; Denies: chills or fatigue Eyes: Denies: change in vision ENMT: Denies: throat pain, ear or mastoid pain or nasal discharge Card: Denies: chest pain, palpitations, swelling of feet/ankles or lightheadedness Resp: Reports: productive cough; Denies: dyspnea or wheezing GI: Reports: abdominal pain, nausea, vomiting and GI cramping; Denies: diarrhea or constipation : Denies: flank pain, difficulty voiding, dysuria or urinary frequency Musc: Denies: neck pain, back pain or joint pain Skin/Breast: Denies: rash Neuro: Denies: headache(s), numbness in extremities or weakness in extremities [facility] ED PFSH: Medical History Tendinitis of finger of left hand Abnormal flow volume loop Chronic pain of right wrist Asthma 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 Surgical History H/O right knee surgery Family History Denies family history of Colon cancer Ovarian cancer Diabetes Heart disease Hyperlipidemia Breast cancer Hypertension Uterine cancer Thyroid disease Stroke Social History Smoking and tobacco/nicotine status: current every day tobacco/nicotine user (Nicotine Vape) Physical Exam Const: COMMON NORMALS: patient oriented x3 and no limitations GENERAL APPEARANCE: cooperative, comfortable, well developed and lethargic ORIENTATION/CONSCIOUSNESS: Yes awake, Yes oriented to person, Yes oriented to place, Yes oriented to time and Yes lethargic HENMT: COMMON NORMALS: normocephalic, atraumatic and hearing grossly normal bilaterally HEAD & SCALP: normocephalic and atraumatic MOUTH: Normal oral and palatal mucosa present THROAT: posterior oropharynx normal Eye: COMMON NORMALS: Equal, round and reactive pupils present, EOMs intact bilaterally and conjunctivae normal CONJUNCTIVA: Yes conjunctivae normal PUPIL: Yes Equal, round and reactive pupils present Neck/C-Spine: COMMON NORMALS: full ROM, supple and no JVD Resp: COMMON NORMALS: No retractions, No use of accessory muscles and clear to auscultation bilaterally EFFORT & INSPECTION: Yes tachypneic AUSCULTATION: clear to auscultation bilaterally Cardio: COMMON NORMALS: no JVD, regular rhythm, No clicks present (Cardio), No murmurs present (Cardio) and No rub (Cardio) RATE: tachycardic RHYTHM: regular rhythm GI: COMMON NORMALS: Normal to inspection, nondistended, normoactive bowel sounds present, Soft to palpation and non-tender AUSCULTATION: Yes normoactive bowel sounds PALPATION: Yes Soft to palpation RECTAL EXAM: deferred : COMMON NORMALS: Yes no CVA tenderness BLADDER/KIDNEY EXAM: Yes no CVA tenderness Back/Pelvis: COMMON NORMALS: no CVA tenderness Extremity: COMMON NORMALS: normal to inspection, full ROM and capillary refill normal Neuro: COMMON NORMALS: patient oriented x3, moves all extremities, no focal motor deficits and no sensory deficits noted SENSORIUM/ORIENTATION: Yes oriented to person, Yes oriented to place, Yes oriented to time and Yes lethargic Psych: COMMON NORMALS: mental status grossly normal and Normal thought process present THOUGHT PROCESS: Normal thought process present Skin: COMMON NORMALS: no rashes or lesions noted GENERAL SKIN EXAM: no rashes or lesions noted Course Vital Signs: Vital signs: Vital Signs Temperature 99.6 F 10/26/23 23:37 Pulse Rate 96 10/26/23 23:37 Respiratory Rate 24 H 10/26/23 20:34 Blood Pressure 118/70 10/26/23 20:34 Pulse Oximetry 100 10/26/23 23:37 Oxygen Delivery Me thod Room Air 10/26/23 23:37 MDM - Fever Medical Decision Making Patient had presented for acute onset of fever 105 at home. Was seen here a week ago for similar respiratory symptoms and discharged with antibiotics and steroids. She notes this was improving until today when she suddenly felt sick and recorded a temp of 105 per temporal reading. Initially started with labs, all of which were unremarkable including negative for lactic, signs of infection, thyroid issues, or any other concerning findings. Her urinalysis was negative. EKG was normal. Chest x-ray demonstrated no acute findings. Temperature was brought down with Tylenol and she states she felt a little better after receiving Reglan and fluids, though states not much. Due to her tachycardia upon arrival and negative workup so far, ordered a CTA to rule out pulmonary embolus which was also negative. I do not have a clear explanation as to why patient was running a fever today, as she was febrile on arrival at 102.9. However, she does have a negative workup and I feel patient is safe to be worked up on an outpatient basis for any further etiology. No emergent findings at this time and no further workup necessary. Patient's respiratory panel also negative for any viral illness. Her primary concern is cough and the lethargy associated with coughing so much, so we will prescribe Promethazine DM to take at home. She is encouraged to continue Tylenol and ibuprofen for body aches as well as to control fevers. Reasons to return thoroughly discussed. Patient discharged home at this time. Lab Data 10/26/23 21:59 10/26/23 21:59 Radiology Impressions Chest X-Ray 10/26/23 21:41 IMPRESSION: No acute findings. Chest CTA 10/27/23 00:03 IMPRESSION: 1. No pulmonary emboli. 2. No focal consolidations. Laboratory Results WBC 12.92 10^3/uL (3.29-11.43) H 10/26/23 21:59 RBC 4.33 10^6/uL (3.85-5.65) 10/26/23 21:59 Hgb 10.10 g/dL (11.27-16.99) L 10/26/23 21:59 Hct 33.5 % (36-47) L 10/26/23 21:59 MCV 77.4 fl (85-98) L 10/26/23 21:59 MCH 23.3 pg (27-33) L 10/26/23 21:59 MCHC 30.1 g/dL (30-55) 10/26/23 21:59 RDW 17.2 % (12.1-15.1) H 10/26/23 21:59 Plt Count 328 10^3/cmm (157-399) 10/26/23 21:59 MPV 9.9 fL (7.4-10.4) 10/26/23 21:59 Neut % (Auto) 87.4 % 10/26/23 21:59 Lymph % (Auto) 7.7 % 10/26/23 21:59 Lucas % (Auto) 3.4 % 10/26/23 21:59 Eos % (Auto) 0.5 % 10/26/23 21:59 Baso % (Auto) 0.5 % 10/26/23 21:59 Neut # (Auto) 11.29 10^3/uL (1.8-7.7) H 10/26/23 21:59 Lymph # (Auto) 1.0 10^3/uL (0.8-4.8) 10/26/23 21:59 Lucas # (Auto) 0.4 10^3/uL (0.2-0.9) 10/26/23 21:59 Eos # (Auto) 0.1 10^3/uL (0.0-0.8) 10/26/23 21:59 Baso # (Auto) 0.1 10^3/uL (0.0-0.1) 10/26/23 21:59 Nucleated RBC % (auto) 0 % 10/26/23 21:59 Nucleated RBCs # 0.0 /100WBC 10/26/23 21:59 Sodium 133 mmol/L (136-145) L 10/26/23 21:59 Potassium 4.1 mmol/L (3.5-5.1) 10/26/23 21:59 Chloride 98 mmol/L (98-107) 10/26/23 21:59 Carbon Dioxide 21 mmol/L (22-29) L 10/26/23 21:59 Anion Gap 18.1 (5-19) 10/26/23 21:59 BUN 12 mg/dL (6-20) 10/26/23 21:59 Creatinine 0.7 mg/dL (0.5-0.9) 10/26/23 21:59 GFR Calculation 97.0 mL/min (90-130) 10/26/23 21:59 Glucose 122 mg/dL (65-115) H 10/26/23 21:59 Calculated Osmolality 277 mOsm/kg (285-295) L 10/26/23 21:59 Lactic Acid 1.1 mmol/L (0.5-2.2) 10/26/23 21:59 Calcium 9.1 mg/dL (8.5-10.5) 10/26/23 21:59 Total Bilirubin 0.5 mg/dL (0.15-1.2) 10/26/23 21:59 AST 18 U/L (0-32) 10/26/23 21:59 ALT 23 U/L (0-33) 10/26/23 21:59 Alkaline Phosphatase 65 U/L (35-105) 10/26/23 21:59 C-Reactive Protein 12.1 mg/L (0.0-4.9) H 10/26/23 21:59 Total Protein 7.8 g/dL (6.6-8.7) 10/26/23 21:59 Albumin 4.0 g/dL (3.5-5.2) 10/26/23 21:59 Globulin 3.8 g/dL (1.3-4.6) 10/26/23 21:59 TSH 0.49 uIU/mL (0.27-4.20) 10/26/23 21:59 HCG, Qual Negative (Negative) 10/26/23 21:59 Urine Color Yellow (Yellow) 10/26/23 23:10 Urine Appearance Clear (CLEAR) 10/26/23 23:10 Urine pH 8 (5-7) H 10/26/23 23:10 Ur Specific [place] 1.005 (1.005-1.030) 10/26/23 23:10 Urine Protein Neg (Negative) 10/26/23 23:10 Urine Glucose (UA) Norm (Normal) 10/26/23 23:10 Urine Ketones Negative (Negative) 10/26/23 23:10 Urine Blood Neg (Negative) 10/26/23 23:10 Urine Nitrate Negative (Negative) 10/26/23 23:10 Urine Bilirubin Neg (Negative) 10/26/23 23:10 Prot Sulfosalicylic Acd Negative (Negative) 10/26/23 23:10 Urine Urobilinogen Neg mg/dL (Negative) 10/26/23 23:10 Ur Leukocyte Esterase Negative (Negative) 10/26/23 23:10 Adenovirus (PCR) Not detected (NOT DETECT) 10/26/23 22:06 C. pneumoniae DNA (PCR) Not detected (NOT DETECT) 10/26/23 22:06 Coronavirus 229E (PCR) Not detected (NOT DETECT) 10/26/23 22:06 Human Metapneumovir PCR Not detected (NOT DETECT) 10/26/23 22:06 Influenza A (H1) PCR Not detected (NOT DETECT) 10/26/23 22:06 Influ A (H1/09) PCR Not detected (NOT DETECT) 10/26/23 22:06 Influenza A (H3) PCR Not detected (NOT DETECT) 10/26/23 22:06 Influenza Type A (PCR) Not detected (NOT DETECT) 10/26/23 22:06 Influenza Type B (PCR) Not detected (NOT DETECT) 10/26/23 22:06 M. pneumoniae (PCR) Not detected (NOT DETECT) 10/26/23 22:06 Parainfluenza 1 (PCR) Not detected (NOT DETECT) 10/26/23 22:06 Parainfluenza 2 (PCR) Not detected (NOT DETECT) 10/26/23 22:06 Parainfluenza 3 (PCR) Not detected (NOT DETECT) 10/26/23 22:06 Parainfluenza 4 (PCR) Not detected (NOT DETECT) 10/26/23 22:06 RSV Type A (PCR) Not detected (NOT DETECT) 10/26/23 22:06 RSV Type B (PCR) Not detected (NOT DETECT) 10/26/23 22:06 Entero/Rhino (PCR) Not detected (NOT DETECT) 10/26/23 22:06 SARS-CoV-2 (PCR) Not detected (NOT DETECT) 10/26/23 22:06 All radiology interpretation(s) finalized by discharge Discharge Plan Discharge Patient Disposition: Home Clinical Impression: Fever of unknown origin Condition: Stable Prescriptions: New promethazine-DM 6.25-15 mg/5 mL syrup 5 ml PO Q4H PRN (Reason: cough) Qty: 118 0RF No Action benzonatate 200 mg capsule 200 mg PO TID PRN (Reason: cough) Qty: 21 0RF albuterol sulfate 90 mcg/actuation HFA aerosol inhaler 2 inh inhalation Q4H PRN (Reason: shortness of breath or wheezing) Qty: 8.5 0RF Discharge Orders: Discharge ED (Routine); Ordered 10/27/23 Ordered By: Nathan Crump Referrals: Lashonda Hunt DO [Primary Care Provider] - Discharge Diet: Usual diet Discharge Activity: Increase activity as tolerated Patient Instructions: Fever in Adults (ED) Activity Restrictions/Additional Instructions: Plenty of fluids. Take cough medicine as prescribed. Keep using albuterol inhaler at home as needed. Tylenol/ibuprofen for any aches and pains or fevers. Follow-up with primary care for further evaluation as discussed. Your respiratory panel today was negative for any viral illness. Coding Level of Care Code ED Commissioned Fire Officer for Chg Fwd Documented by User: Edd Murphy DO 10/28/23 16:57 HPI - Fever General: Chief Complaint: Fever Stated Complaint: high fever at home Time Seen by Provider: 10/26/23 21:07 PFS ED PFSH: Medical History Tendinitis of finger of left hand Abnormal flow volume loop Chronic pain of right wrist Asthma 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 Surgical History H/O right knee surgery Family History Denies family history of Colon cancer Ovarian cancer Diabetes Heart disease Hyperlipidemia Breast cancer Hypertension Uterine cancer Thyroid disease Stroke Social History Smoking and tobacco/nicotine status: current every day tobacco/nicotine user (Nicotine Vape) Course Vital Signs: Vital signs: Vital Signs Temperature 99.6 F 10/26/23 23:37 Pulse Rate 96 10/26/23 23:37 Respiratory Rate 24 H 10/26/23 20:34 Blood Pressure 118/70 10/26/23 20:34 Pulse Oximetry 100 10/26/23 23:37 Oxygen Delivery Me thod Room Air 10/26/23 23:37 MDM - Fever Medical Decision Making Patient had presented for acute onset of fever 105 at home. Was seen here a week ago for similar respiratory symptoms and discharged with antibiotics and steroids. She notes this was improving until today when she suddenly felt sick and recorded a temp of 105 per temporal reading. Initially started with labs, all of which were unremarkable including negative for lactic, signs of infection, thyroid issues, or any other concerning findings. Her urinalysis was negative. EKG was normal. Chest x-ray demonstrated no acute findings. Temperature was brought down with Tylenol and she states she felt a little better after receiving Reglan and fluids, though states not much. Due to her tachycardia upon arrival and negative workup so far, ordered a CTA to rule out pulmonary embolus which was also negative. I do not have a clear explanation as to why patient was running a fever today, as she was febrile on arrival at 102.9. However, she does have a negative workup and I feel patient is safe to be worked up on an outpatient basis for any further etiology. No emergent findings at this time and no further workup necessary. Patient's respiratory panel also negative for any viral illness. Her primary concern is cough and the lethargy associated with coughing so much, so we will prescribe Promethazine DM to take at home. She is encouraged to continue Tylenol and ibuprofen for body aches as well as to control fevers. Reasons to return thoroughly discussed. Patient discharged home at this time. Chart reviewed Lab Data 10/26/23 21:59 10/26/23 21:59 Radiology Impressions Chest X-Ray 10/26/23 21:41 IMPRESSION: No acute findings. Chest CTA 10/27/23 00:03 IMPRESSION: 1. No pulmonary emboli. 2. No focal consolidations. Laboratory Results WBC 12.92 10^3/uL (3.29-11.43) H 10/26/23 21:59 RBC 4.33 10^6/uL (3.85-5.65) 10/26/23 21:59 Hgb 10.10 g/dL (11.27-16.99) L 10/26/23 21:59 Hct 33.5 % (36-47) L 10/26/23 21:59 MCV 77.4 fl (85-98) L 10/26/23 21:59 MCH 23.3 pg (27-33) L 10/26/23 21:59 MCHC 30.1 g/dL (30-55) 10/26/23 21:59 RDW 17.2 % (12.1-15.1) H 10/26/23 21:59 Plt Count 328 10^3/cmm (157-399) 10/26/23 21:59 MPV 9.9 fL (7.4-10.4) 10/26/23 21:59 Neut % (Auto) 87.4 % 10/26/23 21:59 Lymph % (Auto) 7.7 % 10/26/23 21:59 Lucas % (Auto) 3.4 % 10/26/23 21:59 Eos % (Auto) 0.5 % 10/26/23 21:59 Baso % (Auto) 0.5 % 10/26/23 21:59 Neut # (Auto) 11.29 10^3/uL (1.8-7.7) H 10/26/23 21:59 Lymph # (Auto) 1.0 10^3/uL (0.8-4.8) 10/26/23 21:59 Lucas # (Auto) 0.4 10^3/uL (0.2-0.9) 10/26/23 21:59 Eos # (Auto) 0.1 10^3/uL (0.0-0.8) 10/26/23 21:59 Baso # (Auto) 0.1 10^3/uL (0.0-0.1) 10/26/23 21:59 Nucleated RBC % (auto) 0 % 10/26/23 21:59 Nucleated RBCs # 0.0 /100WBC 10/26/23 21:59 Sodium 133 mmol/L (136-145) L 10/26/23 21:59 Potassium 4.1 mmol/L (3.5-5.1) 10/26/23 21:59 Chloride 98 mmol/L (98-107) 10/26/23 21:59 Carbon Dioxide 21 mmol/L (22-29) L 10/26/23 21:59 Anion Gap 18.1 (5-19) 10/26/23 21:59 BUN 12 mg/dL (6-20) 10/26/23 21:59 Creatinine 0.7 mg/dL (0.5-0.9) 10/26/23 21:59 GFR Calculation 97.0 mL/min (90-130) 10/26/23 21:59 Glucose 122 mg/dL (65-115) H 10/26/23 21:59 Calculated Osmolality 277 mOsm/kg (285-295) L 10/26/23 21:59 Lactic Acid 1.1 mmol/L (0.5-2.2) 10/26/23 21:59 Calcium 9.1 mg/dL (8.5-10.5) 10/26/23 21:59 Total Bilirubin 0.5 mg/dL (0.15-1.2) 10/26/23 21:59 AST 18 U/L (0-32) 10/26/23 21:59 ALT 23 U/L (0-33) 10/26/23 21:59 Alkaline Phosphatase 65 U/L (35-105) 10/26/23 21:59 C-Reactive Protein 12.1 mg/L (0.0-4.9) H 10/26/23 21:59 Total Protein 7.8 g/dL (6.6-8.7) 10/26/23 21:59 Albumin 4.0 g/dL (3.5-5.2) 10/26/23 21:59 Globulin 3.8 g/dL (1.3-4.6) 10/26/23 21:59 TSH 0.49 uIU/mL (0.27-4.20) 10/26/23 21:59 HCG, Qual Negative (Negative) 10/26/23 21:59 Urine Color Yellow (Yellow) 10/26/23 23:10 Urine Appearance Clear (CLEAR) 10/26/23 23:10 Urine pH 8 (5-7) H 10/26/23 23:10 Ur Specific [place] 1.005 (1.005-1.030) 10/26/23 23:10 Urine Protein Neg (Negative) 10/26/23 23:10 Urine Glucose (UA) Norm (Normal) 10/26/23 23:10 Urine Ketones Negative (Negative) 10/26/23 23:10 Urine Blood Neg (Negative) 10/26/23 23:10 Urine Nitrate Negative (Negative) 10/26/23 23:10 Urine Bilirubin Neg (Negative) 10/26/23 23:10 Prot Sulfosalicylic Acd Negative (Negative) 10/26/23 23:10 Urine Urobilinogen Neg mg/dL (Negative) 10/26/23 23:10 Ur Leukocyte Esterase Negative (Negative) 10/26/23 23:10 Adenovirus (PCR) Not detected (NOT DETECT) 10/26/23 22:06 C. pneumoniae DNA (PCR) Not detected (NOT DETECT) 10/26/23 22:06 Coronavirus 229E (PCR) Not detected (NOT DETECT) 10/26/23 22:06 Human Metapneumovir PCR Not detected (NOT DETECT) 10/26/23 22:06 Influenza A (H1) PCR Not detected (NOT DETECT) 10/26/23 22:06 Influ A (H1/09) PCR Not detected (NOT DETECT) 10/26/23 22:06 Influenza A (H3) PCR Not detected (NOT DETECT) 10/26/23 22:06 Influenza Type A (PCR) Not detected (NOT DETECT) 10/26/23 22:06 Influenza Type B (PCR) Not detected (NOT DETECT) 10/26/23 22:06 M. pneumoniae (PCR) Not detected (NOT DETECT) 10/26/23 22:06 Parainfluenza 1 (PCR) Not detected (NOT DETECT) 10/26/23 22:06 Parainfluenza 2 (PCR) Not detected (NOT DETECT) 10/26/23 22:06 Parainfluenza 3 (PCR) Not detected (NOT DETECT) 10/26/23 22:06 Parainfluenza 4 (PCR) Not detected (NOT DETECT) 10/26/23 22:06 RSV Type A (PCR) Not detected (NOT DETECT) 10/26/23 22:06 RSV Type B (PCR) Not detected (NOT DETECT) 10/26/23 22:06 Entero/Rhino (PCR) Not detected (NOT DETECT) 10/26/23 22:06 SARS-CoV-2 (PCR) Not detected (NOT DETECT) 10/26/23 22:06 Discharge Plan Discharge Patient Disposition: Home Clinical Impression: Fever of unknown origin Condition: Stable Prescriptions: New promethazine-DM 6.25-15 mg/5 mL syrup 5 ml PO Q4H PRN (Reason: cough) Qty: 118 0RF No Action benzonatate 200 mg capsule 200 mg PO TID PRN (Reason: cough) Qty: 21 0RF albuterol sulfate 90 mcg/actuation HFA aerosol inhaler 2 inh inhalation Q4H PRN (Reason: shortness of breath or wheezing) Qty: 8.5 0RF Discharge Orders: Discharge ED (Routine); Ordered 10/27/23 Ordered By: Nathan Crump Referrals: Lashonda Hunt DO [Primary Care Provider] - Discharge Diet: Usual diet Discharge Activity: Increase activity as tolerated Patient Instructions: Fever in Adults (ED) Activity Restrictions/Additional Instructions: Plenty of fluids. Take cough medicine as prescribed. Keep using albuterol inhaler at home as needed. Tylenol/ibuprofen for any aches and pains or fevers. Follow-up with primary care for further evaluation as discussed. Your respiratory panel today was negative for any viral illness. Coding Level of Care Code ED Commissioned Fire Officer for Alix Rubalcava
--- NOTE | 2023-10-26 21:54 | ECG_ITS ---
[facility] Test Date: 2023-10-26 Pat Name: Brittni Goodman Department: Room: Gender: Female Lang Path Therapist: : 1990 Requested By: Nathan Barraza Order Number: [id number] Joan MD: Mikey Hall M.D. Measurements Intervals [place] Rate: 109 P: 41 AR: 152 QRS: 28 QRSD: 82 T: 48 QT: 311 QTc: 420 Interpretive Statements SINUS TACHYCARDIA POSSIBLE LEFT ATRIAL ENLARGEMENT [-0.1mV P-WAVE IN V1/V2] ABNORMAL RHYTHM ECG No previous ECG available for comparison Electronically Signed On 10-27-2023 11:46:07 CDT by Mikey Hall M.D. [email or web address] [id number]
[2023-10-26] MEDS: acetaminophen 500 mg Tablet 1000 MG PO (22:03)
[2023-10-26] MEDS: sodium chloride 0.9% 1,000 ML 999 ML IV (22:04)
[2023-10-26] MEDS: metoclopramide 5 mg/mL SDV 2 mL 10 MG IVP (22:04)
[2023-10-26 22:07] LABS: Basophils # 0.1 10^3/uL (0.0-0.1); Basophils % 0.5 %; Eosinophils # 0.1 10^3/uL (0.0-0.8); Eosinophils % 0.5 %; Hematocrit 33.5 % (36-47); Lymphocytes % 7.7 %; Mean Corpuscular HGB Conc 30.1 g/dL (30-55); Mean Corpuscular Hemoglobin 23.3 pg (27-33); Mean Corpuscular Volume 77.4 fl (85-98); Mean Platelet Volume 9.9 fL (7.4-10.4); Monocytes # 0.4 10^3/uL (0.2-0.9); Monocytes % 3.4 %; Neutrophils # 11.29 10^3/uL (1.8-7.7); Neutrophils % 87.4 %; Nucleated Red Blood Cells % 0 %; Platelet Count 328 10^3/cmm (157-399); Red Blood Count 4.33 10^6/uL (3.85-5.65); Red Cell Distribution Width 17.2 % (12.1-15.1); White Blood Count 12.92 10^3/uL (3.29-11.43)
[2023-10-26 22:20] LABS: HCG, Serum Qual Negative (Negative)
[2023-10-26 22:28] LABS: Lactic Sepsis W/Reflex 1.1 mmol/L (0.5-2.2)
[2023-10-26 22:39] LABS: Alanine Aminotransferase 23 U/L (0-33); Alkaline Phosphatase 65 U/L (35-105); Anion Gap 18.1 (5-19); Aspartate Amino Transferase 18 U/L (0-32); Blood Urea Nitrogen 12 mg/dL (6-20); C Reactive Protein 12.1 mg/L (0.0-4.9); Calcium 9.1 mg/dL (8.5-10.5); Carbon Dioxide 21 mmol/L (22-29); Chloride 98 mmol/L (98-107); Creatinine Clr Calc Pharmacy 154.3049; Globulin 3.8 g/dL (1.3-4.6); Glucose 122 mg/dL (65-115); Osmolality Calculated 277 mOsm/kg (285-295); Potassium 4.1 mmol/L (3.5-5.1); Sodium 133 mmol/L (136-145); Thyroid Stimulating Hormone 0.49 uIU/mL (0.27-4.20); Total Bilirubin 0.5 mg/dL (0.15-1.2); Total Protein 7.8 g/dL (6.6-8.7)
[2023-10-26 23:11] LABS: Add Urine Microscopic? NO; Charge for UA Resulting for Rev
[2023-10-26 23:25] LABS: Bilirubin Urine Neg (Negative); Blood Urine Neg (Negative); Glucose Urine UA Norm (Normal); Ketones Urine Negative (Negative); Leukocyte Esterase Urine Negative (Negative); Nitrate Urine Negative (Negative); Protein Urine Neg (Negative); Specific Gravity, Urine 1.005 (1.005-1.030); Sulfosalicylic Acid Urine Negative (Negative); Urine Appearance Clear (CLEAR); Urine Color Yellow (Yellow); Urobilinogen Urine Neg (Negative); pH Urine 8 (5-7)
[2023-10-26 23:37] VITALS: PULSE 96; TEMP 37.6; O2SAT 100
--- NOTE | 2023-10-27 00:03 | CTR_ITS ---
PROCEDURE INFORMATION: Exam: CTA Chest With Contrast Exam date and time: 10/27/2023 12:12 AM Age: 33 years old Clinical indication: Cough and other: Tachycardia and hypotension; Patient HX: Cough with tachycardia and hypotension. History of asthma. ; Additional info: Tachy, resp complaints TECHNIQUE: Imaging protocol: Computed tomographic angiography of the chest with contrast. Exam focused on the arteries. 3D rendering (Not supervised by radiologist): MIP and/or 3D reconstructed images were created by the technologist. Radiation optimization: All CT scans at this facility use at least one of these dose optimization techniques: automated exposure control; mA and/or kV adjustment per patient size (includes targeted exams where dose is matched to clinical indication); or iterative reconstruction. Contrast material: OMNI 350; Contrast volume: 61 ml; Contrast route: INTRAVENOUS (IV); COMPARISON: CT chest [facility] [id number] 03/29/2022 7:34 AM RADIATION DOSE METRICS: Total DLP (mGy-cm): 389.54 FINDINGS: Pulmonary arteries: No pulmonary emboli. Aorta: Unremarkable. No aortic aneurysm. No aortic dissection. Lungs: No focal consolidations. Pleural spaces: Unremarkable. No pneumothorax. No pleural effusion. Heart: Unremarkable. No cardiomegaly. No pericardial effusion. Lymph nodes: Unremarkable. No enlarged lymph nodes. Liver: The liver is diffusely low in attenuation consistent with hepatic steatosis. Bones/joints: Unremarkable. No acute fracture. Soft tissues: Unremarkable. CT/CT angio chest PE protcl [id number] IMPRESSION: 1. No pulmonary emboli. 2. No focal consolidations.
[2023-10-27 00:06] LABS: Adenovirus Not Detected (NOT DETECT); Chlamydia Pneumoniae Not Detected (NOT DETECT); Coronavirus 229E,HKU1,NL63,OC4 Not Detected (NOT DETECT); Human Metapneumovirus Not Detected (NOT DETECT); Human Rhinovirus/Enterovirus Not Detected (NOT DETECT); Influenza A Not Detected (NOT DETECT); Influenza A H1 Not Detected (NOT DETECT); Influenza A H1-2009 Not Detected (NOT DETECT); Influenza A H3 Not Detected (NOT DETECT); Influenza B Not Detected (NOT DETECT); Mycoplasma Pneumoniae Not Detected (NOT DETECT); Parainfluenza Virus Type 1 Not Detected (NOT DETECT); Parainfluenza Virus Type 2 Not Detected (NOT DETECT); Parainfluenza Virus Type 3 Not Detected (NOT DETECT); Parainfluenza Virus Type 4 Not Detected (NOT DETECT); Respiratory Syncytial Virus A Not Detected (NOT DETECT); Respiratory Syncytial Virus B Not Detected (NOT DETECT); SARS-COV-2 Not Detected (NOT DETECT)
[2023-10-27] MEDS: iohexol 350 mg/mL 500 mL Btl (per mL) IV (00:24)
== END 2023-10-27 01:12 | disposition home or self-care (01) ==
PROVIDERS: Emergency Provider Physician Assistant; PCP Family Medicine
DX: R50.9 Fever, unspecified (principal); Z11.52 Encounter for screening for COVID-19; F17.290 Nicotine dependence, other tobacco product, uncomplicated
CPT/HCPCS: 36415; 71045; 71275; 80053; 81003; 83605; 84443; 84703; 85025; 86140; 87040; 87486; 87581; 87633; 93005; 96361; 96374; 99285; J2765; J7030; Q9967

== ENCOUNTER 2024-02-08 18:27 | Emergency (ER) | payer SELFPAY ==
[2024-02-08 18:38] VITALS: BP 151/88; PULSE 88; RESP 16; TEMP 36.8; O2SAT 99; BMI 36.9
--- NOTE | 2024-02-08 20:46 | XRR_ITS ---
PROCEDURE INFORMATION: Exam: XR Lumbosacral Spine Exam date and time: 02/08/2024 9:16 PM Age: 33 years old Clinical indication: Low back pain and sciatica; Bilateral; Prior surgery; Surgery date: 6+ months; Surgery type: Lumbar laminectomy/facetectomy; Patient HX: C/O low back pain with radiation into both hips. History of sciatica. ; Additional info: Lbp, no new trauma, HX of surgery TECHNIQUE: Imaging protocol: Radiologic exam of the lumbosacral spine. Views: 2 or 3 views. COMPARISON: OT XR lumbar spine 1V [id number] 07/25/2023 9:29 AM FINDINGS: Bones/joints: Mild dextrocurvature of the lumbar spine. No acute fracture. Mild anterior compression deformity at L4 appears similar to prior. Vertebral body heights are otherwise maintained. Mild degenerative disc disease at L5-S1. Soft tissues: Unremarkable. XR/XR lumbar spine 2-3V* [id number] IMPRESSION: 1. No acute osseous findings. 2. Mild degenerative changes of the lumbosacral spine.
--- NOTE | 2024-02-08 21:51 | W.ED.BACK ---
Documented by User: MICKEY Davey 02/09/24 00:54 HPI - Back Pain/Injury General: Chief Complaint: Back Pain/Injury Stated Complaint: Back Pain Time Seen by Provider: 02/08/24 21:33 Source: patient Mode of arrival: ambulatory Limitations: no limitations History of Present Illness: Patient is a 33-year-old female presents the emergency department complaining of low back pain onset today. History of lumbar decompression in June, states that things have been great since however she was lifting stuff heavy recently and this may have caused onset of pain. It is not as severe if she is seated doing nothing, however any movement seems to exacerbate it quite a bit. She has been taking Tylenol and ibuprofen without relief. No trauma reported. Noting some numbness extending down both legs. She is denying any bowel or bladder incontinence, fever, or other symptoms at this time. MD elicited complaint: back pain Pertinent past history: prior back pain and back surgery Onset (ago): hour(s) Timing: constant and progressively worsening Severity: severe Similar Symptoms Previously: Yes Location: lumbar spine Radiation: left leg below the knee and right leg below the knee Exacerbating factors: movement Associated symptoms: Deny abdominal pain, chills, fever(s), nausea or vomiting Treatments prior to arrival: NSAIDS and acetaminophen Related Data Previous Rx's Medication Instructions Recorded albuterol sulfate 90 mcg/actuation 2 inh inhalation Q4H PRN shortness 10/19/23 aerosol inhaler of breath or wheezing #8.5 grams benzonatate 200 mg capsule 200 mg PO TID PRN cough #21 caps 10/19/23 promethazine-DM 6.25 mg-15 mg/5 mL 5 ml PO Q4H PRN cough #118 mL 10/27/23 oral syrup methocarbamol 750 mg tablet 750 mg PO Q8H 5 days #15 tabs 02/08/24 Allergies Allergy/AdvReac Type Severity Reaction Status Date / Time No Known Allergies Allergy Verified 02/08/24 18:38 Review of Systems General: Reports: 10 or more systems reviewed and unremarkable except in HPI and below Const: Denies: fever(s) or chills Card: Denies: chest pain Resp: Denies: dyspnea or productive cough GI: Denies: abdominal pain, nausea, vomiting or diarrhea : Denies: flank pain Musc: Reports: back pain; Denies: neck pain, extremity pain, extremity swelling, joint pain, joint swelling, joint redness, joint warmth, limited range of motion or muscle weakness Skin/Breast: Denies: rash Neuro: Reports: numbness in extremities; Denies: headache(s) or weakness in extremities PFSH ED PFSH: Medical History Tendinitis of finger of left hand Abnormal flow volume loop Chronic pain of right wrist Asthma 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 Surgical History H/O right knee surgery Family History Denies family history of Colon cancer Ovarian cancer Diabetes Heart disease Hyperlipidemia Breast cancer Hypertension Uterine cancer Thyroid disease Stroke Social History Smoking and tobacco/nicotine status: current every day tobacco/nicotine user (Nicotine Vape) Physical Exam Const: COMMON NORMALS: no acute distress, patient oriented x3, no limitations, healthy appearing, alert and well nourished HENMT: COMMON NORMALS: normocephalic and atraumatic HEAD & SCALP: normocephalic and atraumatic Neck/C-Spine: COMMON NORMALS: full ROM, supple and no meningeal signs Resp: COMMON NORMALS: normal respiratory effort, No use of accessory muscles and clear to auscultation bilaterally AUSCULTATION: clear to auscultation bilaterally Cardio: COMMON NORMALS: regular rate and regular rhythm RATE: regular rate RHYTHM: regular rhythm Back/Pelvis: OTHER: Postoperative scar to lumbar region. Some lumbar spinous tenderness to palpation. No paralumbar tenderness to palpation. Pain with any range of motion at the lumbar back. No obvious signs of trauma. Extremity: COMMON NORMALS: normal to inspection, full ROM, capillary refill normal, no joint enlargement and no clubbing, cyanosis or edema NARRATIVE EXTREMITY EXAM: Distal neurovascular status intact, no focal sensory deficit Neuro: COMMON NORMALS: patient oriented x3, moves all extremities, no focal motor deficits, no sensory deficits noted and deep tendon reflexes 2+ bilaterally SENSORIUM/ORIENTATION: Yes alert MENINGEAL SIGNS: Yes no meningeal signs Skin: COMMON NORMALS: no rashes or lesions noted GENERAL SKIN EXAM: no rashes or lesions noted Course Vital Signs: Vital signs: Vital Signs Temperature 98.3 F 02/08/24 18:38 Pulse Rate 89 02/09/24 01:04 Respiratory Rate 17 02/09/24 01:04 Blood Pressure 134/82 02/09/24 01:04 Pulse Oximetry 97 02/09/24 01:04 MDM - Back Pain/Injury Medical Decision Making Patient presented for low back pain beginning today, history of decompression in June. States she was lifting heavy recently. X-ray did not demonstrate any acute abnormalities. Does not report much relief after receiving Decadron and Toradol, will send home 1 dose muscle relaxer and Mitchell for her to take at home and also prescribe her muscle relaxers prior to her following up with orthopedics and spine next week for further evaluation. She does not have any red flag back symptoms to report. Her incision did appear well-healed. No other concerning signs or symptoms that would warrant any further evaluation here in the emergency department. Reasons to return were discussed and she is in agreement with discharge home at this time. Also discussed other general recovery options such as ice and heat which she has yet to do. Labs Radiology Impressions Lumbar Spine X-Ray 02/08/24 20:46 IMPRESSION: 1. No acute osseous findings. 2. Mild degenerative changes of the lumbosacral spine. All radiology interpretation(s) finalized by discharge Discharge Plan Discharge Patient Disposition: Home Clinical Impression: Low back strain Qualifiers: Encounter type: initial encounter Qualified Code(s): S39.012A - Strain of muscle, fascia and tendon of lower back, initial encounter Condition: Stable Prescriptions: New methocarbamol 750 mg tablet 750 mg PO Q8H 5 Days Qty: 15 0RF No Action benzonatate 200 mg capsule 200 mg PO TID PRN (Reason: cough) Qty: 21 0RF albuterol sulfate 90 mcg/actuation HFA aerosol inhaler 2 inh inhalation Q4H PRN (Reason: shortness of breath or wheezing) Qty: 8.5 0RF promethazine-DM 6.25-15 mg/5 mL syrup 5 ml PO Q4H PRN (Reason: cough) Qty: 118 0RF Discharge Orders: Discharge ED (Routine); Ordered 02/08/24 Ordered By: Nathan Crump Discharge Diet: Usual diet Discharge Activity: Increase activity as tolerated Patient Instructions: Back Pain (ED) Activity Restrictions/Additional Instructions: Methocarbamol. Tylenol and ibuprofen at home. Follow-up with orthospine as discussed. Gentle range of motion exercises as tolerated and avoid any heavy lifting or strenuous activity over the next couple of days. Rest and recovery. Alternate ice and heat as discussed. Return with any new or worsening. Coding Level of Care Code ED [employer] Documented by User: Miko Bansal, 02/09/24 14:55 HPI - Back Pain/Injury General: Chief Complaint: Back Pain/Injury Stated Complaint: Back Pain Time Seen by Provider: 02/08/24 21:33 Related Data Previous Rx's Medication Instructions Recorded albuterol sulfate 90 mcg/actuation 2 inh inhalation Q4H PRN shortness 10/19/23 aerosol inhaler of breath or wheezing #8.5 grams benzonatate 200 mg capsule 200 mg PO TID PRN cough #21 caps 10/19/23 promethazine-DM 6.25 mg-15 mg/5 mL 5 ml PO Q4H PRN cough #118 mL 10/27/23 oral syrup methocarbamol 750 mg tablet 750 mg PO Q8H 5 days #15 tabs 02/08/24 Allergies Allergy/AdvReac Type Severity Reaction Status Date / Time No Known Allergies Allergy Verified 02/08/24 18:38 [facility] ED PFSH: Medical History Tendinitis of finger of left hand Abnormal flow volume loop Chronic pain of right wrist Asthma 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 Surgical History H/O right knee surgery Family History Denies family history of Colon cancer Ovarian cancer Diabetes Heart disease Hyperlipidemia Breast cancer Hypertension Uterine cancer Thyroid disease Stroke Social History Smoking and tobacco/nicotine status: current every day tobacco/nicotine user (Nicotine Vape) Course Vital Signs: Vital signs: Vital Signs Temperature 98.3 F 02/08/24 18:38 Pulse Rate 89 02/09/24 01:04 Respiratory Rate 17 02/09/24 01:04 Blood Pressure 134/82 02/09/24 01:04 Pulse Oximetry 97 02/09/24 01:04 MDM - Back Pain/Injury Medical Decision Making Patient presented for low back pain beginning today, history of decompression in June. States she was lifting heavy recently. X-ray did not demonstrate any acute abnormalities. Does not report much relief after receiving Decadron and Toradol, will send home 1 dose muscle relaxer and Mitchell for her to take at home and also prescribe her muscle relaxers prior to her following up with orthopedics and spine next week for further evaluation. She does not have any red flag back symptoms to report. Her incision did appear well-healed. No other concerning signs or symptoms that would warrant any further evaluation here in the emergency department. Reasons to return were discussed and she is in agreement with discharge home at this time. Also discussed other general recovery options such as ice and heat which she has yet to do. This patient was seen by Mr. Theron PA-C. I agree with his history, evaluation, and treatment. Labs Radiology Impressions Lumbar Spine X-Ray 02/08/24 20:46 IMPRESSION: 1. No acute osseous findings. 2. Mild degenerative changes of the lumbosacral spine. Discharge Plan Discharge Patient Disposition: Home Clinical Impression: Low back strain Qualifiers: Encounter type: initial encounter Qualified Code(s): S39.012A - Strain of muscle, fascia and tendon of lower back, initial encounter Condition: Stable Prescriptions: New methocarbamol 750 mg tablet 750 mg PO Q8H 5 Days Qty: 15 0RF No Action benzonatate 200 mg capsule 200 mg PO TID PRN (Reason: cough) Qty: 21 0RF albuterol sulfate 90 mcg/actuation HFA aerosol inhaler 2 inh inhalation Q4H PRN (Reason: shortness of breath or wheezing) Qty: 8.5 0RF promethazine-DM 6.25-15 mg/5 mL syrup 5 ml PO Q4H PRN (Reason: cough) Qty: 118 0RF Discharge Orders: Discharge ED (Routine); Ordered 02/08/24 Ordered By: Nathan Crump Discharge Diet: Usual diet Discharge Activity: Increase activity as tolerated Patient Instructions: Back Pain (ED) Activity Restrictions/Additional Instructions: Methocarbamol. Tylenol and ibuprofen at home. Follow-up with orthospine as discussed. Gentle range of motion exercises as tolerated and avoid any heavy lifting or strenuous activity over the next couple of days. Rest and recovery. Alternate ice and heat as discussed. Return with any new or worsening. Coding Level of Care Code ED [employer]person [employer] for [employer]
[2024-02-08] MEDS: dexamethasone 10 mg/mL INJ IM (21:53)
[2024-02-08] MEDS: ketorolac 60 mg/2 mL INJ IM (21:54)
[2024-02-09] MEDS: HYDROcodone-acetaminophen 7.5-325 mg Tablet 1 TAB PO (00:30)
[2024-02-09] MEDS: methocarbamol 750 mg Tablet PO (00:30)
[2024-02-09 01:04] VITALS: BP 134/82; PULSE 89; RESP 17; O2SAT 97
== END 2024-02-09 00:32 | disposition home or self-care (01) ==
PROVIDERS: Emergency Provider Physician Assistant
DX: S39.012A Strain of muscle, fascia and tendon of lower back, initial encounter (principal); F17.290 Nicotine dependence, other tobacco product, uncomplicated; X50.0XXA Overexertion from strenuous movement or load, initial encounter
CPT/HCPCS: 72100; 96372; 99284; J1100; J1885

== ENCOUNTER 2024-08-12 22:27 | Emergency (ER) | payer SELFPAY ==
[2024-08-12 22:29] VITALS: BP 123/73; PULSE 88; RESP 18; TEMP 36.7; O2SAT 99; BMI 34.0
--- NOTE | 2024-08-12 22:49 | ECG_ITS ---
[facility] Date: 2024-[facility]12 Pat Name: Brittni Goodman Department: Room: Gender: Female Academic Intern: : 1990 Requested By: Nathan Barraza Order Number: [id number] Joan MD: Hector Segovia M.D. Measurements Intervals [place] Rate: 80 P: 71 KS: 157 QRS: 93 QRSD: 94 T: 68 QT: 376 QTc: 436 Interpretive Statements SINUS RHYTHM BORDERLINE RIGHT AXIS DEVIATION [QRS AXIS > 90] INCOMPLETE RIGHT BUNDLE BRANCH BLOCK [90+ ms QRS DURATION, TERMINAL R IN V1/V2, 40+ ms S IN I/aVL/V4/V5/V6] Compared to ECG 10/26/2023 21:54:45 Incomplete right bundle-branch block now present Sinus tachycardia no longer present Electronically Signed On 08-15-2024 07:49:31 CDT by Hector Segovia M.D. [id number] [id number]
--- NOTE | 2024-08-12 23:24 | ED_ITS ---
HPI - Back Pain/Injury General: Chief Complaint: Back Pain/Injury Stated Complaint: back pain Time Seen by Provider: 08/12/24 23:21 Source: patient Mode of arrival: ambulatory Limitations: no limitations History of Present Illness: Patient is a 34-year-old female who presents the emergency department complaining of upper back pain began suddenly earlier today. Denies any known recent heavy lifting or injury, specifically does not report any trauma. States that the pain is worsened when she takes deep breaths or with any movement of the mid back. No urinary symptoms or distal numbness weakness or tingling. Does have a history of lumbar surgery. No bowel or bladder incontinence or saddle anesthesia. No chest pain shortness of breath, just dating that her pain is worsened with taking deep breaths. MD elicited complaint: back pain Pertinent past history: prior back pain Onset (ago): hour(s) Timing: constant Severity: moderate Similar Symptoms Previously: Yes Quality: sharp Location: thoracic spine Radiation: none Exacerbating factors: movement Relieving factors: none Associated symptoms: Deny abdominal pain, difficulty walking, fecal incontinence, fever(s) or syncope Related Data Previous Rx's ?Medication ?Instructions ?Recorded albuterol sulfate 90 mcg/actuation 2 inh inhalation Q4 H PRN shortness 10/19/23 aerosol inhaler of breath or wheezing #8.5 g shay benzonatate 200 mg capsule 200 mg PO TID PRN cough #21 caps 10/19/23 promethazine-DM 6.25 mg-15 mg/5 mL 5 ml PO Q4H PRN cou gh #118 mL 10/27/23 oral syrup cyclobenzaprine 5 mg tablet 5 mg PO Q8H #10 tabs 08/12 ketorolac 10 mg tablet 10 mg PO Q8H PRN pain #15 ta bs 08/12/24 prednisone 20 mg tablet 60 mg (3 x 20 mg) PO ONCE 5 days 08/12/24 #15 tabs Allergies Allergy/AdvReac Type Severity Reaction Status Date / Time No Known Allergies Allergy Verified 02/08/24 18:38 Review of Systems General: Reports: 10 or more systems reviewed and unremarkable except in HPI and below Const: Reports: other (denies trauma); Denies: fever(s), change in weight or night sweats Card: Denies: chest pain, lightheadedness or syncope Resp: Denies: dyspnea GI: Denies: abdominal pain or fecal incontinence : Denies: urinary incontinence Musc: Reports: back pain; Denies: neck pain or extremity pain Skin/Breast: Denies: rash or skin pain Neuro: Denies: headache(s), numbness in extremities, weakness in extremities, sensory changes, lack of coordination, difficulty walking, frequent falls or involuntary movements PFSH ED PFSH: Medical History Tendinitis of finger of left hand Abnormal flow volume loop Chronic pain of right wrist Asthma 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 Surgical History H/O right knee surgery Family History Denies family history of Colon cancer Ovarian cancer Diabetes Heart disease Hyperlipidemia Breast cancer Hypertension Uterine cancer Thyroid disease Stroke Social History Smoking and tobacco/nicotine status: current every day tobacco/nicotine user (Nicotine Vape) Physical Exam Const: COMMON NORMALS: patient oriented x3, no limitations, healthy appearing and alert OTHER: Uncomfortable appearing. Resp: COMMON NORMALS: normal respiratory effort, No retractions, No use of accessory muscles and clear to auscultation bilaterally AUSCULTATION: clear to auscultation bilaterally Cardio: COMMON NORMALS: regular rate, regular rhythm, S1 normal heart sound present and S2 normal heart sound present RATE: regular rate RHYTHM: regular rhythm HEART SOUNDS: S1 normal heart sound present and S2 normal h eart sound present Back/Pelvis: COMMON NORMALS: straight leg raise negative bilaterally OTHER: Postoperative scar lumbar spine. Easily reproducible tenderness to palpation to thoracic spine with no signs of trauma or step-off deformity. Range of motion limited with lateral rotation secondary to pain. Extremity: COMMON NORMALS: normal to inspection and full ROM Neuro: COMMON NORMALS: patient oriented x3, moves all extremities, no focal motor deficits, no sensory deficits noted, deep tendon reflexes 2+ bilaterally and gait normal SENSORIUM/ORIENTATION: Yes alert OTHER: L3, L4, L5, and S1 nerve sensations intact. Normal knee jerk and ankle jerk reflexes. Skin: COMMON NORMALS: no rashes or lesions noted GENERAL SKIN EXAM: no rashes or lesions noted Course Vital Signs: Vital signs: Vital Signs Temperature 98.0 F 08/12/24 22:29 Pulse Rate 88 08/12/24 22:29 Respiratory Rate 18 08/12/24 22:29 Blood Pressure 123/73 08/12/24 22:29 Pulse Oximetry 99 08/12/24 22:29 Oxygen Delivery Me thod Room Air 08/12/24 22:29 MDM - Back Pain/Injury Medical Decision Making Patient presented with upper back pain beginning suddenly earlier today. No sp ecific trauma or heavy lifting that she recalls. Does have a history of low back surgery. Urinalysis did not show any signs of infection and not concerned of any kidney pathology. Physical exam overall was unremarkable, the pain was easily reproducible to palpation. Chest x-ray was unremarkable, and EKG reviewed with physician did not show any acute abnormalities here. I suspect musculoskeletal etiology, and after medications here she was notably more comfortable upon recheck. Will send medications to pharmacy and have her follow-up with regular doctor in the next few days. Return precautions given, she verbalized understanding is comfortable discharge home. Labs Laboratory Results Urine Color Yellow (Yellow) 08/12/24 23:36 Urine Appearance Clear (CLEAR) 08/12/24 23:36 Urine pH 6.0 (5-7) 08/12/24 23:36 Ur Specific [place] 1.031 (1.005-1.030) H 08/12/24 23:36 Urine Protein Trace (Negative) A 08/12/24 23:36 Urine Glucose (UA) Negative (Normal) 08/12/24 23:36 Urine Ketones Trace (Negative) 08/12/24 23:36 Urine Blood Negative (Negative) 08/12/24 23:36 Urine Nitrate Negative (Negative) 08/12/24 23:36 Urine Bilirubin Negative (Negative) 08/12/24 23:36 Urine Urobilinogen 1.0 mg/dL (Negative) 08/12/24 23:36 Ur Leukocyte Esterase Negative (Negative) 08/12/24 23:36 Urine RBC 0-2 /hpf (0-2) 08/12/24 23:36 Urine WBC 0-5 /hpf (0-5) 08/12/24 23:36 Ur Squamous Epith Cells 0-5 /hpf (0-5) 08/12/24 23:36 Amorphous Sediment Not Reportable 08/12/24 23:36 Urine Bacteria None seen /hpf (NONE) 08/12/24 23:36 Hyaline Casts 0.40 /lpf 08/12/24 23:36 XR interpretation done by ED provider, pending radiology final review ED provider radiology interpretation(s): Chest x-ray showing no acute finding. Discharge Plan Discharge Patient Disposition: Home Clinical Impression: Upper back strain Condition: Stable Prescriptions: New prednisone 20 mg tablet 60 mg PO ONCE 5 Days Qty: 15 0RF ketorolac 10 mg tablet 10 mg PO Q8H PRN (Reason: pain) Qty: 15 0RF cyclobenzaprine 5 mg tablet 5 mg PO Q8H Qty: 10 0RF No Action benzonatate 200 mg capsule 200 mg PO TID PRN (Reason: cough) Qty: 21 0RF albuterol sulfate 90 mcg/actuation HFA aerosol inhaler 2 inh inhalation Q4H PRN (Reason: shortness of breath or wheezing) Qty: 8.5 0RF promethazine-DM 6.25-15 mg/5 mL syrup 5 ml PO Q4H PRN (Reason: cough) Qty: 118 0RF Discharge Orders: Discharge ED (Routine); Ordered 08/12/24 Ordered By: Nathan Crump Patient Instructions: Back Pain (ED) Activity Restrictions/Additional Instructions: Take medications as prescribed. Apply heat to your back. Range of motion exercises as tolerated. Follow-up with primary doctor as we discussed. Return with any new or worsening. Print Language: Upper Sorbian Coding Level of Care Code ED [employer] for [employer]
--- NOTE | 2024-08-12 23:31 | XRR_ITS ---
PROCEDURE INFORMATION: Exam: XR Chest Exam date and time: 08/12/2024 11:39 PM Age: 34 years old Clinical indication: Chest pressure and chest wall pain and radiating; Additional info: Mid back pain TECHNIQUE: Imaging protocol: Radiologic exam of the chest. Views: 1 view. COMPARISON: CT angio chest PE protcl [id number] 10/27/2023 12:12 AM FINDINGS: Lungs: Unremarkable. No consolidation. Pleural spaces: Unremarkable. No pleural effusion. No pneumothorax. Heart/Mediastinum: Unremarkable. No cardiomegaly. Bones/joints: Unremarkable. XR/XR chest 1V portable [id number] IMPRESSION: No acute abnormality.
[2024-08-12] MEDS: orphenadrine 30 mg/mL Inj 2 mL 60 MG IM (23:38)
[2024-08-12] MEDS: dexamethasone 10 mg/mL INJ IM (23:38)
[2024-08-12] MEDS: ketorolac 60 mg/2 mL INJ IM (23:38)
[2024-08-12 23:41] LABS: Bilirubin Urine Negative (Negative); Blood Urine Negative (Negative); Glucose Urine UA Negative (Normal); Ketones Urine Trace (Negative); Leukocyte Esterase Urine Negative (Negative); Nitrate Urine Negative (Negative); Protein Urine Trace (Negative); Urine Appearance Clear (CLEAR); Urine Color Yellow (Yellow)
[2024-08-12 23:46] LABS: Add Urine Microscopic? YES; Bacteria Urine None Seen /hpf; RBC Urine 0-2 /hpf (0-2); Squamous Epithelial Cell Urine 0-5 /hpf (0-5); WBC Urine 0-5 /hpf (0-5)
[2024-08-12 23:47] LABS: Specific Gravity, Urine 1.031 (1.005-1.030)
== END 2024-08-13 00:04 | disposition home or self-care (01) ==
PROVIDERS: Emergency Provider Physician Assistant
DX: S29.012A Strain of muscle and tendon of back wall of thorax, initial encounter (principal); F17.290 Nicotine dependence, other tobacco product, uncomplicated; X58.XXXA Exposure to other specified factors, initial encounter
CPT/HCPCS: 71045; 81001; 93005; 96372; 99284; J1100; J1885; J2360

== ENCOUNTER 2024-09-24 20:28 | Emergency (ER) | payer SELFPAY ==
[2024-09-24 20:30] VITALS: BP 109/66; PULSE 89; TEMP 36.7; O2SAT 100; BMI 34.0
[2024-09-24 20:56] VITALS: BP 119/89; PULSE 87; RESP 16; O2SAT 98
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
[2024-09-24] MEDS: orphenadrine 30 mg/mL Inj 2 mL 60 MG IM (21:24)
[2024-09-24] MEDS: ketorolac 30 mg/mL INJ IM (21:24)
[2024-09-24 21:27] VITALS: BP 119/89; PULSE 77; RESP 16; O2SAT 99
[2024-09-24 22:45] VITALS: BP 135/75; PULSE 77; RESP 16; O2SAT 98
== END 2024-09-24 22:48 | disposition home or self-care (01) ==
PROVIDERS: Emergency Provider Nurse Practitioner
DX: S16.1XXA Strain of muscle, fascia and tendon at neck level, initial encounter (principal); S39.012A Strain of muscle, fascia and tendon of lower back, initial encounter; V89.2XXA Person injured in unspecified motor-vehicle accident, traffic, initial encounter
CPT/HCPCS: 72125; 72131; 96372; 99284; J1885; J2360

== ENCOUNTER 2024-09-28 17:06 | Emergency (ER) | payer SELFPAY ==
[2024-09-28 17:27] VITALS: BP 117/63; PULSE 85; TEMP 37; O2SAT 100
--- NOTE | 2024-09-28 17:32 | ECG_ITS ---
[facility] [employer] Test Date: 2024-09-28 Pat Name: Brittni Goodman Department: Room: Gender: Female Director Digital Catalogue: : 1990 Requested By: Edd Salazar Order Number: [id number] Joan MD: Nazario Phipps M.D. Measurements Intervals [place] Rate: 79 P: 36 NV: 162 QRS: 54 QRSD: 108 T: 43 QT: 375 QTc: 431 Interpretive Statements SINUS RHYTHM INTERPRETATION BASED ON A DEFAULT AGE OF 40 YEARS Compared to ECG 08/12/2024 22:49:38 Incomplete right bundle-branch block no longer present Electronically Signed On 09-30-2024 23:29:44 CDT by Nazario Phipps M.D. [id number] [id number]
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
[2024-09-28 19:28] VITALS: BP 132/71; PULSE 95; RESP 16; O2SAT 100
[2024-09-28 19:43] LABS: Basophils % 0.4 %; Eosinophils # 0.2 10^3/uL (0.0-0.8); Eosinophils % 3.1 %; Hematocrit 29.6 % (36-47); Lymphocytes # 1.9 10^3/uL (0.8-4.8); Mean Corpuscular HGB Conc 29.4 g/dL (30-55); Mean Corpuscular Volume 78.1 fl (85-98); Mean Platelet Volume 9.7 fL (7.4-10.4); Monocytes # 0.4 10^3/uL (0.2-0.9); Monocytes % 5.9 %; Neutrophils # 4.79 10^3/uL (1.8-7.7); Neutrophils % 64.2 %; Nucleated Red Blood Cells % 0 %; Platelet Count 273 10^3/cmm (157-399); Red Blood Count 3.79 10^6/uL (3.85-5.65); Red Cell Distribution Width 19.6 % (12.1-15.1); White Blood Count 7.46 10^3/uL (3.29-11.43)
[2024-09-28 20:00] VITALS: BP 133/84; PULSE 85; RESP 16; O2SAT 99
[2024-09-28 20:02] LABS: Alanine Aminotransferase 28 U/L (0-33); Albumin Level 3.9 g/dL (3.5-5.2); Alkaline Phosphatase 59 U/L (35-105); Anion Gap 17.6 (5-19); Aspartate Amino Transferase 20 U/L (0-32); Blood Urea Nitrogen 17 mg/dL (6-20); Calcium 8.9 mg/dL (8.5-10.5); Carbon Dioxide 23 mmol/L (22-29); Chloride 100 mmol/L (98-107); Creatinine Clr Calc Pharmacy 171.4795; Globulin 3.4 g/dL (1.3-4.6); Glomerular Filtration Rate 115.1 mL/min (90-130); Glucose 88 mg/dL (65-115); Osmolality Calculated 285 mOsm/kg (285-295); Potassium 3.6 mmol/L (3.5-5.1); Sodium 137 mmol/L (136-145); Total Bilirubin 0.4 mg/dL (0.15-1.2); Total Protein 7.3 g/dL (6.6-8.7)
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
[2024-09-28 20:29] LABS: Bilirubin Urine Negative (Negative); Blood Urine Negative (Negative); Glucose Urine UA Negative (Normal); Ketones Urine Negative (Negative); Leukocyte Esterase Urine Negative (Negative); Nitrate Urine Negative (Negative); Protein Urine Negative (Negative); Specific Gravity, Urine 1.011 (1.005-1.030); Urine Appearance Clear (CLEAR); Urine Color Yellow (Yellow); Urobilinogen Urine 0.2 mg/dL (Negative); pH Urine 7.5 (5-7)
[2024-09-28 20:31] LABS: Add Urine Microscopic? YES; Bacteria Urine None Seen /hpf; Hyaline Casts Urine 0-4 /lpf; RBC Urine 0-2 /hpf (0-2); Squamous Epithelial Cell Urine 0-5 /hpf (0-5); WBC Urine 0-5 /hpf (0-5)
[2024-09-28 21:00] VITALS: PULSE 86; RESP 17; O2SAT 98
[2024-09-28 21:28] VITALS: BP 121/76; PULSE 76; RESP 16; O2SAT 100
--- NOTE | 2024-10-01 16:40 | DCPLANNER ---
patient called asking for a referral to neurology - spoke with Dr. Quintana he said that she can go through primary if she feels she needs a neuro consult. she stated she didn't have one and we offered to refer her to a PCP. She said nevermind and hung up.
== END 2024-09-28 21:26 | disposition home or self-care (01) ==
PROVIDERS: Student in an Organized Health Care Education/Training Program; Emergency Provider Student in an Organized Health Care Education/Training Program
DX: R55 Syncope and collapse (principal); D64.9 Anemia, unspecified; R51.9 Headache, unspecified; F17.290 Nicotine dependence, other tobacco product, uncomplicated
CPT/HCPCS: 36415; 70450; 80053; 81001; 85025; 93005; 99284

== ENCOUNTER 2025-03-31 17:06 | Emergency (ER) | payer OTHER, SELFPAY ==
[2025-03-31 17:09] VITALS: BP 130/80; PULSE 85; RESP 17; TEMP 36.7; O2SAT 98; BMI 34.0
--- OUTSIDE RECORDS SUMMARY | 2025-03-31 17:11 | XMS_ITS | Clinical Summary ---
Author Organization [facility] Address [address] [place] [address] Care Team Providers Care Senior Producer Name Role Phone Unavailable Primary Care Provider Unavailabl e Medications gabapentin (NEURONTIN) 100 mg capsule Take 100 mg by mouth 2 times daily. 2 Active methocarbamoL (ROBAXIN) 500 mg tablet TAKE 1 TABLET BY MOUTH EVERY 6 HOURS 3 Active predniSONE (DELTASONE) 50 mg tablet Take 50 mg by mouth daily. 3 Active Ventolin HFA 90 mcg/actuation inhaler INHALE 2 PUFFS BY MOUTH EVERY 6 HOURS NEEDED FOR SHORTNESS OF BREATH OR WHEEZING 2 Active methylPREDNISol one (MEDROL DOSPACK) 4 mg Tablets, Dose Pack Take as directed on package. 21 Tablet 3 Active Active Problems Problem Noted Date Diagnosed Date Right carpal tunnel syndrome 10/02/2023 Social History Tobacco Use Types Packs/Day Years Used Date Smoking Tobacco: Former Cigarettes 1 15 0 11/24/2004 - 11/25/2019 Smokeless Tobacco: Never Tobacco Cessation:Counseling Given: Not Answered Comments Unknown Sex and Gender Information Value Date Recorded Sex Assigned at Not on file Legal Sex Female 10:38 AM [employer] Gender Identity Not on file Sexual Orientation Not on file Last Filed Vital Signs Vital Sign Reading Time Taken Comments Blood Pressure 118/64 10/02/2023 2:12 PM CDT Pulse 81 06/06/2022 11:39 AM [employer] Temperature - - Respiratory Rate - - Oxygen Saturation - - Inhaled Oxygen Concentration - - Weight 112.5 kg (248 lb) 10/02/2023 2:12 PM CDT Height 175.3 cm (5' 9 ) 10/02/2023 2:12 PM CDT Body Mass Index 36.62 10/02/2023 2:12 PM CDT Plan of Treatment Health Maintenance Due Date Last Done Comments DTAP/TDAP/TD VACCINES (1 - Tdap) 2010 HEPATITIS B VACCINES (1 of 3 - 19+ 3-dose series) 04/26 HPV/Cotest (21-29) 2012 HPV VACCINES (1 - 3-dose SCDM series) 2018 CERVICAL CANCER SCREENING 2021 HPV/Cotest (30-65) 2021 PAP SMEAR 2021 INFLUENZA VACCINE (#1) 2024 Insurance [facility] [employer] MEDICAID
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
[2025-03-31 17:51] VITALS: BP 140/76; O2SAT 98
[2025-03-31 19:39] VITALS: BP 132/75; PULSE 76; RESP 17; O2SAT 98
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
== END 2025-03-31 19:39 | disposition home or self-care (01) ==
PROVIDERS: Emergency Provider Physician Assistant
DX: S20.20XA Contusion of thorax, unspecified, initial encounter (principal); X58.XXXA Exposure to other specified factors, initial encounter
CPT/HCPCS: 71100; 96372; 99284; J1885